=== PATIENT | male | born 1965 | race African-American/Black ===

== ENCOUNTER 2024-05-24 16:29 | Inpatient (IN) | payer OTHER, SELFPAY ==
[2024-05-24] VITALS (48 sets, daily range): BP systolic 54–147; BP diastolic 32–88; BMI 43.1; BMI 42.1
[2024-05-24] MEDS: NARCAN 1 MG IV (13:29)
[2024-05-24 13:30] LABS: Glucose - Point of Care 174 mg/dl (70-99)
[2024-05-24] MEDS: DIPRIVAN 100 IV ×3 (13:41→23:23)
[2024-05-24] MEDS: LEVOPHED 250 IV ×2 (13:51→20:38)
[2024-05-24] MEDS: NSS 1000 IV ×5 (13:51→23:23)
[2024-05-24 13:56] LABS: AST (SGOT) 48 U/L (17-59); Acetaminophen < 10 ug/ml (10-30); Albumin 4.2 g/dl (3.5-5.0); Alkaline Phosphatase 95 U/L (38-126); Blood Urea Nitrogen 43 mg/dl (9-20); Calcium 8.6 mg/dl (8.4-10.2); Carbon Dioxide 32 mmol/L (22-30); Chloride 97 mmol/L (98-107); Estimated Creatinine Clearance 46 ml/min; Glucose 198 mg/dl (70-99); Potassium 5.2 mmol/L (3.5-5.1); Salicylate < 1.0 mg/dl (2.0-20.0); Sodium 144 mmol/L (135-145); Total Bilirubin 0.6 mg/dl (0.2-1.3); Total Protein 6.9 g/dl (6.3-8.2); eGFR 33.87
[2024-05-24 13:59] LABS: Alcohol None Detected
[2024-05-24 14:01] LABS: B.E. 0.4 mmol/L; HCO3 34.3 mmol/L (21-28); PO2 220 mmHg (83-108)
[2024-05-24 14:01] LABS: Hematocrit 53.9 % (39.0-52.0); Hemoglobin 15.6 g/dL (13.0-18.0); Mean Corp Hgb Conc. 28.9 g/dL (33.0-37.0); Mean Corpuscular Hgb 26.8 pg (27.0-31.0); Mean Corpuscular Volume 92.6 fL (80.0-94.0); Mean Platelet Volume 10.7 fL (7.4-10.4); Platelet Count 319 10^3/uL (130-400); Red Blood Cell Count 5.82 10^6/uL (4.70-6.10); Red Cell Dist. Width 16.2 % (11.5-14.5); White Blood Cell Count 8.1 10^3/uL (4.8-10.8)
[2024-05-24 14:04] LABS: INR 1.09; PT 14.4 Sec (11.4-14.6)
[2024-05-24 14:05] LABS: APTT 21.8 Sec (23.4-35.0)
--- NOTE | 2024-05-24 14:05 | ED.GENMED ---
History of Present Illness
General
Chief Complaint: Change in Mental Status
Source: ambulance crew
Exam Limitations: clinical condition
Time Seen by Provider: 05/24/24 13:30
Nursing documentation reviewed up to this point in time: agreed with
History of Present Illness
History of Present Illness:
58-year-old male with a reported history of asthma and hypertension, hypothyroidism who presents to the emergency department via EMS intubated and minimally responsive. 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 When they checked on him this morning he was very lethargic, per EMS on their arrival he was minimally responsive and hypoxic to
the 50s. He was transported out of the truck and intubated. He was transported to the emergency room for assessment. No other history available on initial presentation.
UPDATE
I spoke to the patient's who arrived in the ER. She says that he has been sick since Thanks[place] with URI symptoms and bad cough. 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 She has been in communication with him over the past
24 hours he has been feeling unwell. Last night he indicated that he was going to sleep in the truck and she says that she spoke to him this morning and he was planning to come home. She then received a call from staff at [facility]
that he was lethargic and EMS had been called.
Review of Systems
Review of Systems
Unable to obtain full review of systems at this time due to: due to acuity
All Other Systems: Not applicable
Phy Exam
Physical Exam
Physical Exam:
General: Patient laying in bed intubated minimally responsive to painful stimuli
Head: Normocephalic, atraumatic
Eyes: Conjunctiva normal, pupils 3 mm and reactive to light bilaterally
Throat: Intubated
Neck: Trachea midline, no JVD noted
Lungs: Diminished at the lung bases, no focal wheezing appreciated; pulse ox 95% on FiO2 of 100% on ventilator
Heart: Regular rate and rhythm, no murmurs, gallops, or rubs
Abd: Soft, non distended, no palpable masses
Neuro: Minimally responsive�will occasionally bite down on ET tube but not responding consistently to painful stimulus
Skin: no rash or signs of trauma
Extremities: No edema in extremities, cool to the touch
Scores
Heart Failure Risk
Heart Failure Risk Score: Not Applicable
Heart Score for Chest Pain Patients
STEMI patient?: Not applicable
Withdrawal Assessment of Alcohol
Withdrawal Assessment Completed?: Not applicable
Course
Orders/Labs/Results
Orders:
Orders
05/24/24 13:26
Electrocardiogram (*1) Urgent
Reason for Study: Other
Other Reason for Exam: Possible Sepsis
Cardiac Monitoring- Treatment ONCE
IV Insert/Care/Rem.- Treatment PRN
Straight cath- Treatment ONCE
Naloxone [Narcan] 2 mg .ROUTE .STK-MED ONE
CR Chest Portable - 1 View Urgent
Comment:
Reason For Exam: intubation
Reason Study Needs to be Portable: Unable to Transport
O2 Therapy [RESP] Urgent
Titrate/Wean O2 to maintain O2 sat greater than (%): 93
Special Instructions: TO MAINTAIN CONTINUOUS O2 SATS > OR = 93%
Pulse Ox/cont/shift [RESP] Urgent
Quantity: 1
Special Instructions: CONTINUOUS
05/24/24 13:27
EKG- Treatment ONCE
05/24/24 13:29
Naloxone [Narcan] 1 mg IV NOW STA
Propofol 1,000,000 Mcg/100 ml [Diprivan] 1,000,000 mcg in 100 ml .ROUTE .STK-MED
05/24/24 13:31
Acetaminophen Urgent
Alcohol Urgent
Complete Blood Count/With Diff Urgent
Comprehensive Metabolic Panel Urgent
Lactic Acid Q4H
Comment: ON ICE, CANCEL 2ND ORDER IF FIRST LACTIC ACID LEVEL <2
Manual Differential Urgent
NT-proBNP Urgent
PTT Urgent
Prothrombin Time Urgent
Salicylate Urgent
Troponin I Stat
05/24/24 13:33
CT Head W/o Iv Contrast Urgent
Comment:
Reason For Exam: unresponsive
CT Pe/abd/pel W Urgent
Reason For Exam: hypoxic, truck cleaner, unresponsive
05/24/24 13:34
0.9% Sodium Chloride 1000 ml [Nss] 1,000 ml IV BOLUS
NORepinephrine 4 MG/250 ML [Levophed] 4 mg in 250 ml IV NOW
Initial dose in mcg/min, then titrate:: 2
Titrate to keep:: MAP > 65 mmHg
Titrate by mcg/min:: 1-2 mcg/min
Frequency of titrations (minutes):: 5
Maximum dose in ICU in mcg/min:: 30
Maximum dose in IMU in mcg/min:: 8
Maximum dose in IVU in mcg/min:: 4
Begin to taper infusion when:: Remained at goal for 4hrs
Taper by mcg/min:: 1-2 mcg/min
Frequency of taper (minutes) if patient maintains goal:: 30
Taper to off?: Yes
If infusion off & no longer maintaining goal:: Contact Provider
05/24/24 13:44
ABG [Arterial Blood Gas] Stat
%Oxygen/Room Air: ac 22 450 +5 100
Carboxyhemoglobin Urgent
05/24/24 14:00
COVID-19 Antigen Urgent
Source: Nasal Swab
Influenza A+B Rapid Molecular Urgent
CHARO Source: Nasal Swab
Specimen Description:
05/24/24 14:04
Piperacillin/Tazo 3.375 Gram [Zosyn] 3.375 gram in 50 ml IV NOW
05/24/24 14:10
PHENYLephrine 50 MG/250 ML NSS [[place]-Synephrine] 50 mg in 250 ml IV NOW
Initial dose in mcg/min, then titrate:: 20
Titrate to keep:: MAP > 65 mmHg
Titrate by mcg/min:: 20 mcg/min
Frequency of titrations (minutes):: 5
Maximum dose in ICU in mcg/min:: 200
Maximum dose in IMU in mcg/min:: 80
Begin to taper infusion when:: Remained at goal for 4hrs
Taper by mcg/min:: 20 mcg/min
Frequency of taper (minutes) if patient maintains goal:: 30
Taper to off?: Yes
If infusion off & no longer maintaining goal:: Contact Provider
05/24/24 14:38
0.9% Sodium Chloride 1000 ml [Nss] 1,000 ml IV BOLUS
05/24/24 14:42
TSH Reflex To Free T4 Urgent
Urinalysis Reflex To Culture Urgent
Date Specimen was Collected: 05/24/24
Time Specimen was Collected: 13:27
Urine Microscopic Reflex Cult Urgent
Blood Culture Q30M
CHARO Source: Blood/Venous
Specimen Description:
Blood Culture Q30M
CHARO Source: Blood/Venous
Specimen Description:
Urine Culture Urgent
CHARO Source: U
Specimen Description:
Date Specimen was Collected: 05/24/24
Time Specimen was Collected: 13:27
Vasopressin 20 Units/100 ml [Pitressin] 20 units in 100 ml IV NOW
Currently infusing. Continue current dose and titrate:: Yes
Titrate to keep:: MAP > 65 mmHg
Titrate by units/min:: 0.005 units/min
Frequency of titrations (minutes):: 10
Maximum dose in units/min:: 0.1
Begin to taper infusion when:: Remained at goal for 8hrs
Taper by units/min:: 0.005 units/min
Frequency of taper (minutes) if patient maintains goal:: 60
Taper to off?: Yes
If infusion off and no longer mantaining goal:: Contact Provider
05/24/24 14:57
Vancomycin [Vancocin] 2,000 mg 0.9% Sodium Chloride 500 ml [Nss] 500 ml IV NOW
05/24/24 15:29
Ipratropium/Albuterol Sulfate [Duoneb] 3 ml INH R NOW STA
MethylPREDNISolone PF [Solu-Medrol Pf] 125 mg IV NOW STA
05/24/24 17:30
Lactic Acid Q4H
Comment: ON ICE, CANCEL 2ND ORDER IF FIRST LACTIC ACID LEVEL <2
Abnormal Lab Results
05/24/24 05/24/24 05/24/24
13:29 13:31 13:44
Hct 53.9 H %
(39.0-52.0)
MCH 26.8 L pg
(27.0-31.0)
MCHC 28.9 L g/dL
(33.0-37.0)
RDW 16.2 H %
(11.5-14.5)
MPV 10.7 H fL
(7.4-10.4)
Abs Immat Gran (auto) 0.4 H 10^3/uL
(0-0.05)
Absolute Monos (auto) 0.7 H 10^3/uL
(0.1-0.6)
Immature Gran % 5.4 H %
(0-0.5)
Lymphocytes % 19.6 L %
(20.5-51.1)
Segmented Neutrophils 40 L %
(42-75)
Band Neutrophils 17 H %
(0-3)
Monocytes (Manual) 12 H %
(2-9)
APTT 21.8 L Sec
(23.4-35.0)
pH 7.11 L*
(7.35-7.45)
pCO2 108 H* mmHg
(35-48)
pO2 220 H mmHg
(83-108)
HCO3 34.3 H mmol/L
(21-28)
ABG O2 Sat (Measured) 100.0 H %
(94-98)
Potassium 5.2 H mmol/L
(3.5-5.1)
Chloride 97 L mmol/L
(98-107)
Carbon Dioxide 32 H mmol/L
(22-30)
BUN 43 H mg/dl
(9-20)
Creatinine 2.2 H mg/dL
(0.7-1.3)
Glucose 198 H mg/dl
(70-99)
Lactic Acid 4.7 H* mmol/L
(0.7-2.0)
ALT 56 H U/L
(0-50)
Troponin I 0.058 H* ng/ml
Ur Occult Blood Reflex
Urine Bilirubin
Urine Urobilinogen
Urine RBC
Urine Bacteria (Reflex)
Urine Albumin (Reflex)
Salicylates < 1.0 L mg/dl
(2.0-20.0)
Acetaminophen < 10 L ug/ml
(10-30)
POC Glucose 174 H mg/dl
(70-99)
05/24/24
14:42
Hct
MCH
MCHC
RDW
MPV
Abs Immat Gran (auto)
Absolute Monos (auto)
Immature Gran %
Lymphocytes %
Segmented Neutrophils
Band Neutrophils
Monocytes (Manual)
APTT
pH
pCO2
pO2
HCO3
ABG O2 Sat (Measured)
Potassium
Chloride
Carbon Dioxide
BUN
Creatinine
Glucose
Lactic Acid
ALT
Troponin I
Ur Occult Blood Reflex 2+ A
(Negative)
Urine Bilirubin 1+ A
(Negative)
Urine Urobilinogen 2+ A
(Neg - 1+)
Urine RBC 3-6 A /HPF
(0-2)
Urine Bacteria (Reflex) Many A
(Negative)
Urine Albumin (Reflex) 3+ A
(Neg - Trace)
Salicylates
Acetaminophen
POC Glucose
05/24/24 13:31
05/24/24 13:31
Vital Signs
Initial and Last Documented VS:
Initial Vital Signs
BP
69/47
05/24/24 13:31
Last Documented Vital Signs
Temp Pulse Resp BP Pulse Ox
2.2 C L 75 15 107/68 95
05/24/24 14:55 05/24/24 15:17 05/24/24 15:17 05/24/24 15:17 05/24/24 15:17
Procedures
Central Line
Left Femoral:
Indication for procedure:: shock
Procedure completed by: Pito Wolf MD
Consent form signed: No
If no, reason: Emergency procedure
Anesthesia: 1% Lidocaine
Central line lumen: triple
Number of attempts: 2
Central line complications: none
Sterile dressing applied?: Yes
MDM/Problems Addressed
Differential Diagnosis Includes:
Patient presents in respiratory failure and shock: Wide differential diagnosis includes infectious etiology such as pneumonia or UTI, intra-abdominal infection; toxicologic issue such as alcohol poisoning, drug overdose; central nervous issue
including stroke, brain bleed, seizure disorder; obstructive shock such as pneumothorax or PE; hemorrhage/massive GI bleed
MDM/Problems Addressed:
58-year-old male presents in respiratory failure intubated by EMS and he is in undifferentiated shock. He was intubated in the field, stat chest x-ray reviewed by me shows ET tube in place, reticular markings bilaterally concerning for pulmonary
edema versus interstitial pneumonia. Accu-Chek on arrival was normal. He was given Narcan and did not respond. He arrived with IV in place we establish second IV. Labs sent off including a CBC and a CMP, lactate, blood cultures, thyroid studies,
troponin, proBNP, Tylenol/likely/alcohol levels. Will send urinalysis and UDS. Will send for a CT of the head. Will check CTA chest and a CT abdomen pelvis as well for undifferentiated shock and respiratory failure. He did apparently have a cold
the past few days will swab for COVID and flu. Cover with broad-spectrum antibiotics with abnormal chest x-ray. Will place emergent central line for shock. IV fluid resuscitation in progress will treat with vasopressors as well. Needs very close
monitoring, ICU admission pending initial assessment.
Labs reviewed: CBC unremarkable, CMP shows renal insufficiency with a creatinine of 2.2. No baseline available for comparison. Troponin and BNP are slightly elevated. Urinalysis many bacteria but no pyuria�was already covered with broad-spectrum
antibiotics for possible pneumonia. CT head was negative. CT chest/abdomen/pelvis shows no PE, bilateral pneumonia but no other acute pathology. At this point working diagnosis is septic shock secondary to pneumonia and acute hypoxic respiratory
failure secondary to pneumonia. He has been given broad-spectrum antibiotics, fluid resuscitation and is now on vasopressors. Will admit to the ICU for further care. Case discussed with hospitalist for admission.
*Radiology
Radiology exam reviewed: preliminary read by ED provider and radiology read reviewed
*Pulse Oximetry
Patient hypoxic: yes
*EKG
Interpreted by ED Provider?: Yes
Heart Rate: 78
Rate: normal
Rhythm: sinus
[place]: normal axis
Interval: normal interval
QRS Pattern: normal QRS
Ischemia: non-specific ST changes
*Critical Care Note
Total Time (30-74mins, 75-104mins- exclusive of procedures): 67
comment:
Critical care statement: A total of 67 minutes of critical care time was provided for this patient. This includes management of unstable vital signs, evaluation of the patient at bedside, frequent reassessment, discussion with
consultants/hospitalist, and review of pertinent medical records. This time was separate from time utilized to perform any aforementioned documented procedures
Data Reviewed
Source: ambulance crew
Patient Management
Discussion with other providers: Hospitalist (Discussed with hospitalist)
Escalation/DeEscalation of care consider admission/obs:
Admission indicated
ED Attending Note
-
Portions of this chart may have been created with voice recognition software.� Occasional wrong word or��sound alike� substitutions may have occurred due to the inherent limitations of voice recognition software.
Discharge Plan
Departure
Patient Disposition: Admit
Date of Disposition: 05/24/24
Time of Disposition: 15:30
Admit to doctor: Danisha
Presentation/result/management discussed w/ accepting MD/DO: Hospitalist
Discharge Problem:
Acute hypoxemic respiratory failure, Septic shock, Pneumonia
Prescriptions:
No Action
atorvastatin [Lipitor] 20 mg Tablet
20 mg PO HS
lisinopril 20 mg Tablet
20 mg PO DAILY
levothyroxine [Synthroid] 200 mcg Tablet
200 mcg PO DAILY
Trelegy Ellipta 100-62.5-25 mcg Blister With Device
1 inh INHALATION R DAILY
Referrals:
UNKNOWN - PT NOT,INTERVIEWE [Unknown Provider] -
Interventions
Interventions:
*Risk Screen - Suicide Last Done: 05/24/24 13:35
*General Assessment Last Done: 05/24/24 13:35
*Neglect/Abuse Screening Last Done: 05/24/24 13:35
*ED COVID-19 Vaccine History Last Done: 05/24/24 13:35
ED- Neurological Assessment Last Done: 05/24/24 13:35
ED Swallowing Screen Last Done: 05/24/24 13:49
Discharge Date and Time
Print Language: LAO
[2024-05-24 14:08] LABS: PCO2 108 mmHg (35-48); pH 7.11 (7.35-7.45)
[2024-05-24 14:10] LABS: Carboxyhemoglobin 3.1 %
[2024-05-24 14:14] LABS: NT-proBNP 6650 pg/ml; Troponin I 0.058 ng/ml
[2024-05-24 14:22] LABS: Lactic Acid 4.7 mmol/L (0.7-2.0)
[2024-05-24 14:30] LABS: ALT (SGPT) 56 U/L (0-50)
[2024-05-24 14:34] LABS: COVID-19 Antigen Negative (Negative)
--- NOTE | 2024-05-24 14:56 | PTCARENOTE ---
patient propofol started at 10 mcg/kg @ 1341 per md riddle verbal order
-titrated to 14mcg/kg @1443
-propofol titrated to 20mcg/kg @1452
--- NOTE | 2024-05-24 14:59 | PTCARENOTE ---
OG tube placed by ED at 1400. 16F. Awaiting ct chest confirmation for placement.
LEft going central line placed by MD riddle @ 1410.
[2024-05-24 15:03] LABS: Urine Albumin 3+ (Neg - Trace); Urine Bilirubin 1+ (Negative); Urine Character Very Cloudy (Clear); Urine Color Yellow; Urine Glucose Negative (Negative); Urine Ketone Negative (Negative); Urine Leukocyte Negative (Negative); Urine Nitrite Negative (Negative); Urine Occult Blood 2+ (Negative); Urine Specific Gravity 1.025 (<1.030); Urine Urobilinogen 2+ (Neg - 1+)
[2024-05-24] MEDS: ZOSYN 50 IV ×2 (15:13→20:56)
[2024-05-24 15:17] LABS: % Basophils 0.5 % (0-2); % Immature Granulocytes 5.4 % (0-0.5); % Lymphocytes 19.6 % (20.5-51.1); % Monocytes 8.3 % (1.7-9.3); % Neutrophils 66.2 % (42.2-75.2); Absolute Immature Granulocytes 0.4 10^3/uL (0-0.05); Absolute Lymphocytes 1.6 10^3/uL (1.2-3.4); Absolute Monocytes 0.7 10^3/uL (0.1-0.6); Absolute Neutrophils 5.4 10^3/uL (1.4-6.5); Nucleated Red Blood Cells % 6.7 % (-)
[2024-05-24 15:18] LABS: Absolute Neutrophils -Man Diff 4.6 10^3/uL (1.4-6.5); Band Neutrophils 17 % (0-3); Lymphocytes 26 % (20-51); Metamyelocytes 2 % (-); Monocytes 12 % (2-9); Myelocytes 2 % (-); Segmented Neutrophils 40 % (42-75)
[2024-05-24 15:19] LABS: Atypical Lymphocytes 1 %
[2024-05-24 15:20] LABS: Normal RBC Morphology Yes; Platelets Checked Yes; Total Cells Counted 100
[2024-05-24 15:25] LABS: Urine Squamous Cell 0-2 /LPF (Few)
[2024-05-24 15:26] LABS: Urine Bacteria Many (Negative); Urine Sperm Seen; Urine White Cell 0-2 /HPF (0-5)
[2024-05-24] MEDS: DUONEB 3 ML INH ×2 (15:35→19:58)
[2024-05-24] MEDS: VANCOCIN 540 MG IV (16:01)
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
[2024-05-24] MEDS: SOLU-MEDROL PF 125 MG IV (16:23)
--- NOTE | 2024-05-24 16:30 | W.PN.UPDATE ---
Update Note
Progress Note Update
I have discussed the case with the family medicine transitional year resident, Jose Payne, and agree with his HPI, physical exam, impression and plan with the following notations/corrections/additions:
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
VS in the ER showed he was afebrile to 97.7F, AL 79, BP 69/47, RR 25, SpO2 98% via ventilator.� Initial labs pertinent for normal WBC at 8.1, Hb 15.6; initial blood gas showed acute hypercapnia with pH 7.11 and pCO2 108.� K level 5.2, Cr 2.2, BUN
43, glucose 198, lactate 4.7, ALT 56, troponin 0.058, proBNP 6650, TSH 60.4 and free T4 0.49. COVID-19 antigen negative.� CXR showed diffusely increased interstitial markings.� CTA Chest/CT A/P with IV contrast showed no acute PE, with a parenchymal
opacity in the lower lobes (L>R), with emphysema in the upper lobes, with diffusedly increased interstitial markings.
PMHx: Asthma, HTN, hypothyroidism (per )
PSHx: Unobtainable
SHx: Unobtainable
FHx: Unobtainable
Pertinent physical exam:
Intubated/sedated
PERRL/EOMI; pupils 2mm b/l and sluggish
ETT in place
+S1/S2; no murmurs/rubs/clicks
Expiratory wheezing heard bilaterally + mechanical breath sounds ; no rales or rhonchi; equal breath sounds
Soft/nontender/normal active bowel sounds
No lower extremity edema
Sedated
I personally reviewed the patient's vitals, labs, imaging, micro, cardiac studies and current/former documentation and took this into account while formulating plan below.
Impression:
#Acute respiratory failure with hypoxia and hypercapnia now on mechanical ventilation
#CAP involving bilateral lower lobes
#Septic shock due to above
#Hypothermia likely due to septic shock from LLL pneumonia
#MAGGI (unknown Cr baseline) with elevated potassium
#Lactic acidosis
#Elevated troponin
#Acute decompensated heart failure (mild)
#Hypothyroidism with severely elevated TSH of 60.4 with free T4 0.49
#Hyperglycemia
#Transaminitis
#Centrilobular emphysema with concern for COPD
Plan:
- Continue with mechanical ventilation with daily SAT/SBT if clinically appropriate
��������������� - Titrate FiO2 + PEEP to maintain SpO2 >90-94%
��������������� - Maintain plateau pressure < 30
��������������� - DuoNebs QID given he is wheezing on exam
��������������� - Decadron 6mg IV q12hr --< wean as he clinically improves
��������������� - Maintain euglycemia while on high-dose steroids with goal BG 140�180; use ISS
��������������� - Lightly sedated with goal RASS -1 to -2 until daily SAT
- Broad spectrum Abx
��������������� - Follow up blood Cx
��������������� - Check sputum Cx and legionella/Strep PNA urine antigens
��������������� - Maintain normothermia with Sintia hugger
- Continue vasopressors with goal MAP>65
��������������� - Unable to diurese given shock state with concern for sepsis
��������������� - Check 2D-echo
��������������� - Consider cardiology consult
- Start IV levothyroxine with 150mcg daily; trend TFTs with next blood draw in 48-72 hrs to assess for improvement in TSH
- trend troponin until downtrends
- Trend lactate until <2mmol/L
- Trend LFTs
- Trend sCr and BUN; renally dose all meds/Abx; monitor I/O and UOP
- Stress ulcer ppx with pepcid
- DVT ppx: HSQ
- Remainder as per resident�s note
Critical care statement: A total of 40 minutes of critical care time was provided for this patient today. This includes management of unstable vital signs, evaluation of the patient at bedside, reviewing the patient's pertinent medical records
including radiographs, microbiology, laboratory evaluations, and� discussion with primary team, consultants, pharmacy, nutrition, physical therapy, case management, charge nurse, critical care nursing, and respiratory therapy.
Imaging:
CTA Chest/CT A/P with IV contast 05/24/2024:
Examination is negative for pulmonary embolism.
Parenchymal airspace opacity within both lower lobes, left greater than right, with findings suspicious for pneumonia. Atelectasis could have a similar appearance.
Changes of emphysema within both lungs, mainly within the upper lungs.
Mild diffuse increased interstitial markings, which could represent interstitial pneumonitis and/or interstitial edema.
Endotracheal tube with tip 3.2 cm above the swati.
Nasogastric tube with tip in the mid to distal esophagus. This tube should be repositioned.
No evidence for bowel obstruction. No evidence for free intraperitoneal air.
CT Head 05/24/2024:� No evidence of acute intracranial abnormality.
[2024-05-24 16:52] LABS: Free T4 0.49 ng/dl (0.78-2.19)
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
[2024-05-24 17:34] LABS: Triglycerides 137 mg/dl (10-149)
[2024-05-24 18:18] LABS: B.E. 0.9 mmol/L; HCO3 30.3 mmol/L (21-28); O2 Saturation % 93.8 % (94-98); PCO2 69 mmHg (35-48); PO2 84 mmHg (83-108); pH 7.25 (7.35-7.45)
[2024-05-24 18:24] LABS: O2 Therapy %Oxygen/Room Air 80
[2024-05-24 18:48] LABS: Triglycerides 201 mg/dl (10-149)
[2024-05-24 18:49] LABS: Lactic Acid 1.1 mmol/L (0.7-2.0)
[2024-05-24 19:03] LABS: Troponin I 0.139 ng/ml
--- NOTE | 2024-05-24 19:06 | PHA.VAN.IN ---
Assessment
- Assessment
Renal Function: Unknown baseline
Concomitant Antimicrobials: piperacillin/tazobactam
Plan
- Plan
Initial / Loading Dose: vanc 2000mg administered @ 1601
Maintenance Regimen: dosing by level
Monitoring: random level 05/25 06
Pharmacokinetics Vancomycin I
- -
Patient Age: 58
Patient Sex: Male
Vancomycin Day #: 1
Indication: Pulmonary/Respiratory
Requesting Provider: Dr. Raman
Pertinent Antimicrobial Allergies:
no pertinent antimicrobial allergies
Height / Weight:
Height 5 ft 7 in
Actual Weight 121.8 kg
Pertinent Past Medical History: BMI 42
- Vital Signs / Lab Results
Temp Pulse Resp BP Pulse Ox
98.6 F 85 22 101/86 96
05/24/24 17:54 05/24/24 17:45 05/24/24 17:45 05/24/24 17:45 05/24/24 17:45
Lab Results - Hematology
05/24/24
13:31
WBC 8.1
Band Neutrophils 17 H
Lab Results - Chemistry
05/24/24
13:31
BUN 43 H
Creatinine 2.2 H
Estimated Creat Clear 46
Albumin 4.2
05/24/24 05/24/24
13:31 18:29
Lactic Acid 4.7 H* 1.1
Lab Results - Urine
05/24/24
14:42
Urine Nitrite (Reflex) Negative
Leukocyte Esterase Rfl Negative
Urine WBC (Reflex) 0-2
Ur Squamous Epith Cells 0-2
Urine Bacteria (Reflex) Many A
Microbiology Results
05/24/24 14:00 Influenza Types A & B (BITA) - Final
Nasal Swab Negative for Influenza A & B, NAAT
Negative results must be combined with clinical observations
and patient history.
Nucleic Acid Amplification test (NAAT)performed on the
[employer] platform.
--- NOTE | 2024-05-24 19:08 | PTCARENOTE ---
1724-Received pt from ED via stretcher.Eyes do not open to stimuli,pt seems to attempt to localize with bl hands going up towards ETT.Pt also resists oral care.+ CASTILLO 2/5 CASTILLO noted.SR noted.Left femoral TLC intact with IVF,Propofol and Levophed
gtts.BP 121/75.# 7.5 ETT to vent.scattered rhonchi noted.Suctioned for moderate amount thick knutson yellow secretions.Large amount oral secretion noted.POX 97% AC 24 450 60% +5.Unable to flush air bolus.Toledo inserted to right nares 75 cm.+ air bolus
auscultated.Abdominal x ray ordered as per MD.Cortez draining yellow urine.Pt's called. Alida Bridget [phone].Plan of care discussed.
--- NOTE | 2024-05-24 19:59 | PTCARENOTE ---
On assessment pt intubated and sedated, unable to follow commands at this time, SR on the monitor, levo gtt, prop gtt, and fluids infusing per order, 7.5 ETT 24 at the lip, R nare NGT clamped, santo in place, respiratory at bedside to assess pt at
this time.
[2024-05-24] MEDS: SUBLIMAZE 50 MCG IV ×2 (20:56→22:34)
[2024-05-24] MEDS: DECADRON 4 MG IV (21:18)
[2024-05-24] MEDS: LEVOTHROID 150 MCG IV (21:29)
[2024-05-24 22:25] LABS: Troponin I 0.215 ng/ml
[2024-05-24] MEDS: HEPARIN 5000 UNITS SC (23:23)
[2024-05-24 23:49] LABS: Glucose - Point of Care 186 mg/dl (70-99)
[2024-05-25] VITALS (57 sets, daily range): BP systolic 112–160; BP diastolic 62–91; BMI 42.4
[2024-05-25] MEDS: NOVOLOG FLEXPEN-MODERATE RESISTANCE 1 UNITS SC ×3 (00:05→23:29)
--- NOTE | 2024-05-25 00:34 | PTCARENOTE ---
PRN fen pushes given for agitation, increased oral secretions, titrating down on levo gtt, approx. 300ml of dark drainage from NGT once attached to Low int. suction, JIG BUILDER made aware, pulse ox 95%
[2024-05-25] MEDS: SUBLIMAZE 50 MCG IV ×7 (00:58→22:28)
[2024-05-25] MEDS: LEVOPHED 250 IV (01:04)
[2024-05-25] MEDS: ZOSYN 50 IV ×4 (01:58→20:04)
--- NOTE | 2024-05-25 03:27 | PTCARENOTE ---
continuing to titrate down on levo, remains on prop gtt, fen pushes PRN, see MAR
[2024-05-25] MEDS: DIPRIVAN 100 IV ×5 (03:54→21:47)
[2024-05-25] MEDS: SUBLIMAZE 100 IV ×2 (04:26→17:23)
[2024-05-25 05:11] LABS: B.E. 7.9 mmol/L; HCO3 34.7 mmol/L (21-28); O2 Saturation % 96.8 % (94-98); PCO2 56 mmHg (35-48); PO2 76 mmHg (83-108)
[2024-05-25 05:16] LABS: O2 Therapy VENT
[2024-05-25 05:48] LABS: Glucose - Point of Care 164 mg/dl (70-99)
[2024-05-25 06:05] LABS: % Basophils 0.6 % (0-2); % Eosinophils 2.8 % (0-6); % Immature Granulocytes 3.1 % (0-0.5); % Lymphocytes 19.1 % (20.5-51.1); % Monocytes 8.4 % (1.7-9.3); Absolute Basophils 0.1 10^3/uL (0-0.2); Absolute Eosinophils 0.3 10^3/uL (0-0.7); Absolute Immature Granulocytes 0.3 10^3/uL (0-0.05); Absolute Lymphocytes 1.8 10^3/uL (1.2-3.4); Absolute Monocytes 0.8 10^3/uL (0.1-0.6); Absolute Neutrophils 6.2 10^3/uL (1.4-6.5); Hematocrit 44.2 % (39.0-52.0); Hemoglobin 13.7 g/dL (13.0-18.0); Mean Corpuscular Hgb 27.2 pg (27.0-31.0); Mean Corpuscular Volume 87.9 fL (80.0-94.0); Mean Platelet Volume 10.9 fL (7.4-10.4); Nucleated Red Blood Cells % 5.4 % (-); Platelet Count 275 10^3/uL (130-400); Red Blood Cell Count 5.03 10^6/uL (4.70-6.10); Red Cell Dist. Width 15.9 % (11.5-14.5); White Blood Cell Count 9.3 10^3/uL (4.8-10.8)
[2024-05-25 06:22] LABS: Vancomycin Random 7.8 ug/ml
[2024-05-25 06:32] LABS: Troponin I 0.394 ng/ml
[2024-05-25 06:34] LABS: ALT (SGPT) 89 U/L (0-50); AST (SGOT) 66 U/L (17-59); Albumin 3.2 g/dl (3.5-5.0); Alkaline Phosphatase 106 U/L (38-126); Blood Urea Nitrogen 35 mg/dl (9-20); Carbon Dioxide 34 mmol/L (22-30); Chloride 103 mmol/L (98-107); Estimated Creatinine Clearance 92 ml/min; Glucose 165 mg/dl (70-99); Potassium 4.5 mmol/L (3.5-5.1); Sodium 144 mmol/L (135-145); Total Bilirubin 0.4 mg/dl (0.2-1.3); Total Protein 5.7 g/dl (6.3-8.2); eGFR > 60.00
[2024-05-25] MEDS: DUONEB 3 ML INH ×4 (07:29→19:53)
--- NOTE | 2024-05-25 08:02 | PHA.VAN.FU ---
Vancomycin Assessment / Plan
- Assessment
Renal Function: SCR Decreasing
WBC's are: WNL
Concomitant Antimicrobials: piperacillin/tazobactam
- Assessment - Therapeutic Drug Monitoring
Random Level: 7.8 - drawn ~13.5H after 2g loading dose
- Dosing Plan
Adjust Regimen to: Vanc 1250mg Q12H - first dose now then 1800
- Monitoring Plan
Trough Level: pre-steady state 05/26 05:30 to ensure clearing appropriately
Monitoring Comments: follow renal function with resolving MAGGI
- Follow Up
Pharmacy will continue to follow.
Vancomycin Follow UP
- -
Patient Age: 58
Patient Sex: Male
Vancomycin Day #: 2
Indication: Pulmonary/Respiratory
Requesting Provider: Dr. Raman
Pertinent Antimicrobial Allergies:
no pertinent antimicrobial allergies
Height / Weight:
Height 5 ft 7 in
Actual Weight 122.6 kg
Pertinent Past Medical History: BMI 42
- Vital Signs / Lab Results
Temp Pulse Resp BP Pulse Ox
98.9 F 60 22 122/69 96
05/25/24 07:46 05/25/24 07:29 05/25/24 07:29 05/25/24 06:30 05/25/24 07:29
Lab Results - Hematology
05/24/24 05/25/24
13:31 05:47
WBC 8.1 9.3
Band Neutrophils 17 H
Lab Results - Chemistry
05/24/24 05/25/24
13:31 05:47
BUN 43 H 35 H
Creatinine 2.2 H 1.1
Estimated Creat Clear 46 92
Albumin 4.2 3.2 L
05/24/24 05/24/24 05/24/24
13:31 18:26 18:29
Lactic Acid 4.7 H* Cancelled 1.1
Lab Results - Urine
05/24/24
14:42
Urine Nitrite (Reflex) Negative
Leukocyte Esterase Rfl Negative
Ur Squamous Epith Cells 0-2
Microbiology Results
05/24/24 14:42 Blood Culture - Preliminary
Blood/Venous Positive culture in progress
Gram Stain - Preliminary
05/24/24 14:42 Legionella Urinary Antigen - Final
Urine Negative for Legionella pneumophila Serogroup 1 antigen.
A negative result does not rule out the possiblity of
Legionella infection due to other serogroups or species of
Legionella. Clinical correlation is recommended.
Streptococcus pneumoniae Antigen (M - Final
Negative for Streptococcus pneumoniae antigen.
A negative result does not exclude infection with
Streptococcus pneumoniae. Clinical correlation is
recommended.
05/24/24 14:00 Influenza Types A & B (BITA) - Final
Nasal Swab Negative for Influenza A & B, NAAT
Negative results must be combined with clinical observations
and patient history.
Nucleic Acid Amplification test (NAAT)performed on the
[employer] platform.
Therapeutic Drug Monitoring
Random Vancomycin 7.8 ug/ml 05/25/24 05:47
[2024-05-25] MEDS: PEPCID 20 MG TUBE (08:14)
[2024-05-25] MEDS: HEPARIN 5000 UNITS SC (08:14)
[2024-05-25] MEDS: MIRALAX 17 GRAMS TUBE (08:14)
--- NOTE | 2024-05-25 08:27 | W.PN.INTV ---
Today's Communication / Plan
Recommendations
Veteran Appeals Reviewer ventilation
SAT/SBT daily if clinically appropriate
Monitor ETT secretions and keep NGT to LIWS
Once NGT output slows, will clamp NGT and then start TF unless extubated by then
Goal RASS 0 to -2
Systemic steroids with wean as he clinically improves
Antibiotics
Follow-up cultures
Nebulized bronchodilators
Aspiration precautions
Levothyroxine; trend TFTs
Critically ill, continue ICU level of care
Assessment
-
58-year-old male with a past medical history of tobacco use disorder, hypertension, hypothyroidism and reported history of asthma who presents with altered mental status. Found to be hypoxic and intubated in the field. Brought to the ER where he
was found to have a pneumonia with upper lobe predominant emphysema. Transferred to the ICU on vasopressors for further care with product scientist services consulted for additional management/recommendations.
Impression:
#Acute respiratory failure with hypoxia and hypercapnia now on mechanical ventilation
#CAP involving bilateral lower lobes
#Septic shock due to above
#Hypothermia likely due to septic shock from LLL pneumonia
#Centrilobular emphysema with concern for COPD with acute exacerbation
#MAGGI (unknown Cr baseline) with elevated potassium - K level now normalized and Cr improving
#Lactic acidosis - resolved
#Elevated troponin - peaked at 0.394 on 05/25/2024
#Acute decompensated heart failure (mild)
#Right ventricular systolic dysfunction (seen on TTE from 05/25/2024)
#Hypothyroidism with severely elevated TSH of 60.4 with free T4 0.49
#Hyperglycemia - improved
#Transaminitis
Plan:
- Continue with mechanical ventilation with daily SAT/SBT if clinically appropriate
��������������� - Titrate FiO2 + PEEP to maintain SpO2 >90-94%
- Given that his PEEP is at 8, would keep FiO2 at 60% and once PEEP is at 5, then start titrating down FiO2
��������������� - Maintain plateau pressure < 30
��������������� - DuoNebs QID given he was wheezing on exam on admission and we are treating for an AECOPD
��������������� - Decadron 6mg IV q12hr --> wean as he clinically improves
��������������� - Maintain euglycemia while on high-dose steroids with goal BG 140�180; use ISS
��������������� - Lightly sedated with goal RASS -1 to -2 until daily SAT
- Broad spectrum Abx
��������������� - Follow up blood Cx - BCx from 05/24/2024 is growing coagulase-negative staph, however other BCx is growing GPC in clusters - follow up species + sensitivities
��������������� - Follow up sputum Cx; legionella/Strep PNA urine antigens both negative
- Continue empiric treatment with antibiotics with vancomycin/Zosyn
��������������� - Maintain normothermia with Sintia hugger prn
- Continue vasopressors with goal MAP>65
��������������� - Unable to diurese given shock state with concern for sepsis
��������������� - 2D-echo done today shows LVEF preserved at 60-85% with moderate concentric LVH, and mildly enlarged RV with mildly reduced RV systolic function
��������������� - Consider cardiology consult
- Started IV levothyroxine with 150mcg daily on 05/24 --> change IV LT4 to PO and trend TFTs with next blood draw in 24-48 hrs to assess for improvement in TSH
- No longer need to trend troponin given it peaked at 0.394 this morning
- No longer need to trend lactate given it is now <2mmol/L
- Trend LFTs
- Trend sCr and BUN; renally dose all meds/Abx; monitor I/O and UOP
- Stress ulcer ppx with pepcid
- NGT currently to LIWS with high output --> once output slows, then clamp tube and we can start tube feeds at that time if not extubated yet
- DVT ppx: LMWH
Continue with ICU level care for this critically ill patient.
Critical care statement: A total of 41 minutes of critical care time was provided for this patient today. This includes management of unstable vital signs, evaluation of the patient at bedside, reviewing the patient's pertinent medical records
including radiographs, microbiology, laboratory evaluations, and discussion with primary team, consultants, pharmacy, nutrition, physical therapy, case management, charge nurse, critical care nursing, and respiratory therapy.
Data:
Transthoracic echocardiogram 05/25/2024:
Normal left ventricular systolic function. LV ejection fraction is 60-65%.
Moderate concentric left ventricular hypertrophy.
Mildly enlarged right ventricular size. Mildly reduced right ventricular
systolic function.
No significant valve disease.
CTA chest/CT abdomen/pelvis with contrast 05/24/2024:
Examination is negative for pulmonary embolism.
Parenchymal airspace opacity within both lower lobes, left greater than right, with findings suspicious for pneumonia. Atelectasis could have a similar appearance.
Changes of emphysema within both lungs, mainly within the upper lungs.
Mild diffuse increased interstitial markings, which could represent interstitial pneumonitis and/or interstitial edema.
Endotracheal tube with tip 3.2 cm above the swati.
Nasogastric tube with tip in the mid to distal esophagus. This tube should be repositioned.
No evidence for bowel obstruction. No evidence for free intraperitoneal air.
Subjective Dataa
Subjective Data
Date of Service:
Date of Service: May 25, 2024
Chief Complaint: Health Facilities Surveyor Follow Up
Subjective:
Patient seen and evaluated this morning. Remains intubated 60%/22/500/8, and has thick brown ETT secretions. On levophed at 2mcg/min. Sedated on fentanyl at 75mcg/hr and propofol at 40mcg/kg/min. Patient's , Alida, at bedside and all
questions were answered. Patient remains responsive to verbal and tactile stimuli but still too sedated to follow commands, as he becomes tachypneic when sedation is lowered.
Review of Systems
General: Unobtainable - Sedation (+ Intubated)
Objective Data
Data Reviewed
Vital Signs / I&O / Oxygen:
Vital Signs
Temp Pulse Resp BP Pulse Ox
98.8 F 59 22 117/66 92
05/25/24 09:00 05/25/24 09:15 05/25/24 09:15 05/25/24 09:15 05/25/24 09:15
Intake and Output
05/24/24 05/25/24 05/26/24
06:59 06:59 06:59
Intake Total 2350.6 / 2606.8 811.1 / 811.1
Output Total 2115 / 2155 110 / 110
Balance 235.6 / 451.8 701.1 / 701.1
SaO2 [A/C] 95
SaO2 92
Physical Exam
General: Respiratory Distress (negative), Chills (negative) and Sweats (negative)
HEENT: Normocephalic, Anicteric and Other (ETT in place)
Cardiovascular: S1-S2 and Peripheral Edema (negative)
Respiratory: Wheeze (negative), Crackles (Bilateral), Rhonchi (negative), Non-Labored Respirations and ET Tube (Mechanical breath sounds heard bilaterally)
GI: Soft, Distended (Abdominal obesity), Non Tender and Normal Bowel Sounds
Neurology: Tremors (negative) and Other (Sedated; pupils 3 mm bilaterally and sluggish)
Skin: Warm, Dry, Cyanosis (negative) and Jaundice (negative)
Labs/Micro/Reports
Lab Data
05/25/24 05:47
05/25/24 05:47
Laboratory Results
05/24/24 05/24/24 05/24/24
13:31 13:44 18:10
PT 14.4
INR 1.09
APTT 21.8 L
pH 7.11 L* 7.25 L
pCO2 108 H* 69 H
pO2 220 H 84
HCO3 34.3 H 30.3 H
O2 Delivery Level %oxygen/room air 80
05/25/24
05:04
PT
INR
APTT
pH 7.40
pCO2 56 H
pO2 76 L
HCO3 34.7 H
O2 Delivery Level Vent
Microbiology
05/24/24 14:42 Blood/Venous Blood Culture - Preliminary
Positive culture in progress
05/24/24 14:42 Blood/Venous Gram Stain - Preliminary
05/24/24 14:42 Blood/Venous Blood Culture - Preliminary
Positive culture in progress
05/24/24 14:42 Blood/Venous Gram Stain - Final
05/24/24 14:42 Urine Legionella Urinary Antigen - Final
Negative for Legionella pneumophila Serogroup 1 antigen.
A negative result does not rule out the possiblity of
Legionella infection due to other serogroups or species of
Legionella. Clinical correlation is recommended.
05/24/24 14:42 Urine Streptococcus pneumoniae Antigen (M - Final
Negative for Streptococcus pneumoniae antigen.
A negative result does not exclude infection with
Streptococcus pneumoniae. Clinical correlation is
recommended.
05/24/24 14:00 Nasal Swab Influenza Types A & B (BITA) - Final
Negative for Influenza A & B, NAAT
Negative results must be combined with clinical observations
and patient history.
Nucleic Acid Amplification test (NAAT)performed on the
[employer] platform.
[2024-05-25] MEDS: NSS 1000 IV (08:30)
[2024-05-25] MEDS: VANCOCIN 275 MG IV ×2 (08:30→17:22)
--- NOTE | 2024-05-25 09:34 | PTCARENOTE ---
Updated assessment, vital signs and drip trends ongoing. Follow up pulmonary status with respiratory cares team and Voice Intercept Technician team. Follow fio2, etco2 trends. Presently on 60% fio2 tv 500 a/c rate 22bpm and peep 8cm. Peak pressures 38. Antibiotics
and steroids continue as ordered. Follow up cultures and trends in labs ongoing. Update with patients via phone. Await for bedside update. Continue to explain all procedures and protocols. Critical care nursing at bedside for pulmonary toilet,
oral cares and suction as needed. Saturation presently 94% at rest. Noted tachypnea when flat or turning in bed.
[2024-05-25] MEDS: DECADRON 4 MG IV ×2 (09:43→20:04)
--- NOTE | 2024-05-25 10:11 | PTCARENOTE ---
Update with patients at bedside. Updated plan of cares, events of eveing and follow up concerns. Continue with teaching, supportive cares and emotional support. Will follow up patient goals during am rounds.
--- NOTE | 2024-05-25 10:33 | PTCARENOTE ---
3D Artist update patients at bedside. Update critical care team in am rounds. Follow up plan of cares, continue progressive wean from ventilator as tolerated. Continue vital signs and ongoing trends.
[2024-05-25 11:54] LABS: Glucose - Point of Care 144 mg/dl (70-99)
[2024-05-25] MEDS: NOVOLOG FLEXPEN-MODERATE RESISTANCE SC ×2 (11:58→18:06)
[2024-05-25] MEDS: SYNTHROID 200 MCG TUBE (12:58)
--- NOTE | 2024-05-25 13:29 | CM ---
CM following re: discharge planning.
Discussed in Rounds, reviewed pt's chart, met with pt and pt's spouse at bedside.
Pt is a 58 year old male, admitted with primary dx of Acute respiratory failure with hypoxia and hypercapnia now on mechanical ventilation. per Rounds meeting, pt intubated on the field, remains intubated, continue supportive care.
Pr lives with spouse 2SH, 2 steps to enter, has 3 stepchildren. 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
PCP: Jessica Reddy
D/C plan: uncertain at this time and will depend on pt's progress.
CM will follow with discharge plan updates as hospitalization progresses
--- NOTE | 2024-05-25 13:37 | W.PN.HOSP.TC ---
Today's Communication/Plan
-
Remained intubated
Assessment / Plan
Assessment / Plan
Assessment/plan:
Acute hypoxic/hypercarbic respiratory failure secondary to pneumonia/CHF exacerbation/asthma/COPD exacerbation
Vent dependent respiratory failure
Patient intubated by EMS, admitted to the ICU
# History of asthma/COPD
# Current smoker
-ABG shows pH of 7.11, pCO2 108, pO2 of 220,
-Salicylates and Tylenol negative, alcohol negative
-Propofol for sedation
-Naloxone given
-Levophed started
-DuoNebs as needed
-Dexamethasone 4 mg every 12
-CT head negative
-Urinalysis unremarkable
Septic shock secondary to interstitial pneumonia
-CT abdomen pelvis shows parenchymal airspace opacity within both lower lobes suspicious for pneumonia
-Check blood cultures
-IV fluids
-Vancomycin/Zosyn
-Patient currently on multiple pressors
-COVID-negative
Acute CHF Exacerbation:
Patient has acute diastolic congestive heart failure
BNP level is elevated at 6500
Troponin level is peaked at 0.394 continue to trend
Continue IV diuresing in form of Lasix 40 mg twice daily
Daily weight.
Strict I's and O's.
Most recent echo shows :
Normal left ventricular systolic function. LV ejection fraction is 60-65%.
Moderate concentric left ventricular hypertrophy.
Mildly enlarged right ventricular size. Mildly reduced right ventricular
systolic function.
No significant valve disease.
Possible carbon monoxide exposure
-Patient slept in truck overnight with truck turned on
-Carboxyhemoglobin of 3.1% however patient was a significant smoker
Acute kidney injury
both improved.
Nonischemic myocardial injury (type II IN, demand ischemia)
-Troponin 0.058
-Trend troponins
Echo shows:
Normal left ventricular systolic function. LV ejection fraction is 60-65%.
Moderate concentric left ventricular hypertrophy.
Mildly enlarged right ventricular size. Mildly reduced right ventricular
systolic function.
No significant valve disease.
Essential hypertension
-Hold lisinopril
Hypothyroidism
-Continue levothyroxine
Full code
DVT prophylaxis�heparin
N.p.o.
Anticipated Discharge: > 48 hours
Subjective/Interval History
-
Date of Service: May 25, 2024
Patient seen and examined bedside.
Patient currently intubated and sedated.
Mechanically ventilated.
Discussed with ICU team Dr. Alexey Pelitez.
Objective Data
-
Labs:
Laboratory Results
05/25/24 05/25/24
05:04 05:47
WBC 9.3
Hgb 13.7
Hct 44.2
Plt Count 275
HCO3 34.7 H
Sodium 144
Potassium 4.5
Chloride 103
Carbon Dioxide 34 H
BUN 35 H
Creatinine 1.1
Glucose 165 H
Calcium 8.0 L
Total Bilirubin 0.4
AST 66 H
ALT 89 H
Alkaline Phosphatase 106
Vital Signs:
Vital Signs
Temp Pulse Resp BP Pulse Ox
98.5 F 56 22 117/66 95
05/25/24 11:17 05/25/24 11:20 05/25/24 11:20 05/25/24 09:15 05/25/24 12:00
I&O
05/24/24 05/25/24 05/26/24
06:59 06:59 06:59
Intake Total 2350.6 / 2606.8 1272.2 / 1272.2
Output Total 2115 / 2155 640 / 640
Balance 235.6 / 451.8 632.2 / 632.2
Physical Exam
-
General: Well Developed and Intubated
HEENT: Normocephalic and Atraumatic
Respiratory: Wheezes, Rales and Rhonchi
Cardiac: Regular Rhythm and S1/S2
GI: Soft and Nondistended
Musculoskeletal: No Edema
Skin: Warm
Neuro: Sedated
[2024-05-25 14:40] LABS: Troponin I 0.329 ng/ml
[2024-05-25] MEDS: LOVENOX 40 MG SC (17:22)
[2024-05-25 17:57] LABS: Glucose - Point of Care 148 mg/dl (70-99)
--- NOTE | 2024-05-25 18:41 | PTCARENOTE ---
No changes in assessment thru day. Patient remains on 60%fio2 peep remains at 8cm. Will continue attempts to lower fio2 follow up lab trends in am as ordered, am chest xray as ordered. Continue with skin cares oral cares as per unit based protocols.
--- NOTE | 2024-05-25 19:38 | PTCARENOTE ---
On assessment pt intubated and sedated, unable to follow commands at this time, SR/SB on the monitor, prop gtt, Fen gtt, and fluids infusing per order, 7.5 ETT 24 at the lip, R nare NGT to low int. suction, santo in place
[2024-05-25 23:22] LABS: Glucose - Point of Care 175 mg/dl (70-99)
[2024-05-25] MEDS: ATIVAN 1 MG IV (23:58)
[2024-05-26] VITALS (32 sets, daily range): BP systolic 98–144; BP diastolic 61–93; BMI 42.8
[2024-05-26] MEDS: NSS (PRESERVATIVE FREE) 0.5 ML IV (00:27)
[2024-05-26] MEDS: ATIVAN 1 MG IV (00:27)
--- NOTE | 2024-05-26 01:46 | PTCARENOTE ---
HR 38-42, COMMUNITY DEVELOPMENT PLANNER made aware and PROP gtt was stopped and PRN ativan was ordered, pt agitated, restarted PROP at 10, HR was mid 40s. Now pt HR 39-42, will stop PROP and change to PRECEDEX gtt.
[2024-05-26] MEDS: PRECEDEX 100 IV (02:02)
[2024-05-26] MEDS: ZOSYN 50 IV ×4 (02:06→19:41)
[2024-05-26] MEDS: SUBLIMAZE 50 MCG IV ×2 (02:48→22:33)
[2024-05-26] MEDS: SUBLIMAZE 100 IV ×2 (02:49→16:00)
[2024-05-26 03:42] LABS: Hematocrit 42.9 % (39.0-52.0); Mean Corp Hgb Conc. 30.3 g/dL (33.0-37.0); Mean Corpuscular Hgb 26.3 pg (27.0-31.0); Mean Corpuscular Volume 86.8 fL (80.0-94.0); Mean Platelet Volume 10.8 fL (7.4-10.4); Platelet Count 251 10^3/uL (130-400); Red Blood Cell Count 4.94 10^6/uL (4.70-6.10); Red Cell Dist. Width 15.7 % (11.5-14.5); White Blood Cell Count 9.7 10^3/uL (4.8-10.8)
[2024-05-26 04:08] LABS: ALT (SGPT) 76 U/L (0-50); AST (SGOT) 40 U/L (17-59); Albumin 3.2 g/dl (3.5-5.0); Alkaline Phosphatase 97 U/L (38-126); Blood Urea Nitrogen 35 mg/dl (9-20); Calcium 8.2 mg/dl (8.4-10.2); Chloride 100 mmol/L (98-107); Estimated Creatinine Clearance 112 ml/min; Glucose 173 mg/dl (70-99); Magnesium 2.7 mg/dl (1.6-2.3); Potassium 4.1 mmol/L (3.5-5.1); Sodium 147 mmol/L (135-145); Total Bilirubin 0.3 mg/dl (0.2-1.3); Total Protein 5.7 g/dl (6.3-8.2); eGFR > 60.00
[2024-05-26 04:12] LABS: Procalcitonin 0.49 ng/ml (0.0-0.25)
[2024-05-26 04:13] LABS: Vancomycin Trough 10.1 ug/ml (5-20)
[2024-05-26 04:18] LABS: Carbon Dioxide 35 mmol/L (22-30)
[2024-05-26 05:10] LABS: Free T4 0.63 ng/dl (0.78-2.19)
[2024-05-26 05:13] LABS: B.E. 13.8 mmol/L; O2 Saturation % 97.5 % (94-98); PCO2 55 mmHg (35-48); PO2 77 mmHg (83-108); pH 7.47 (7.35-7.45)
[2024-05-26] MEDS: NSS (PRESERVATIVE FREE) 1 ML IV (05:17)
[2024-05-26] MEDS: ATIVAN 2 MG IV (05:17)
[2024-05-26] MEDS: NOVOLOG FLEXPEN-MODERATE RESISTANCE 1 UNITS SC ×2 (05:30→17:32)
[2024-05-26] MEDS: SYNTHROID 200 MCG TUBE (05:31)
[2024-05-26 05:39] LABS: Glucose - Point of Care 176 mg/dl (70-99)
--- NOTE | 2024-05-26 05:53 | PTCARENOTE ---
Pt continues with HR 32-48, FIELD CROP FARMWORKER aware and at bedside, DEX stopped and Fen decreased, pt more alert but trying to grab for the ETT, Ativan given PRN and verified with FIELD CROP FARMWORKER due to HR, pt able to follow commands and tracks.
[2024-05-26] MEDS: VANCOCIN 275 MG IV (06:05)
[2024-05-26] MEDS: DUONEB 3 ML INH ×4 (07:23→19:51)
--- NOTE | 2024-05-26 08:01 | PHA.VAN.FU ---
Vancomycin Assessment / Plan
- Assessment
Renal Function: SCR Decreasing
WBC's are: WNL
In the past 24 hrs, patient has been: Afebrile
Concomitant Antimicrobials: piperacillin/tazobactam
- Assessment - Therapeutic Drug Monitoring
Random Level: 10.1 - drawn ~10H after 2nd dose of 1250mg
- Dosing Plan
Adjust Regimen to: Vanc 1500mg Q12H starting at 1800
Patient having additional accumulation but SCR continues to decrease
Level may remain subtherapeutic by end of full dosing interval
Will tentatively increase dosing
- Monitoring Plan
No level(s) ordered at this time: consider levels in next few days
- Follow Up
Pharmacy will continue to follow.
Vancomycin Follow UP
- -
Patient Age: 58
Patient Sex: Male
Vancomycin Day #: 3
Indication: Pulmonary/Respiratory
Requesting Provider: Dr. Raman
Pertinent Antimicrobial Allergies:
NKDA
Height / Weight:
Height 5 ft 7 in
Actual Weight 123.8 kg
Pertinent Past Medical History: BMI 42
- Vital Signs / Lab Results
Temp Pulse Resp BP Pulse Ox
98.0 F 50 22 113/68 96
05/26/24 03:27 05/26/24 07:24 05/26/24 07:24 05/26/24 06:15 05/26/24 07:31
Lab Results - Hematology
05/24/24 05/25/24 05/26/24
13:31 05:47 03:20
WBC 8.1 9.3 9.7
Band Neutrophils 17 H
Lab Results - Chemistry
05/24/24 05/25/24 05/26/24
13:31 05:47 03:20
BUN 43 H 35 H 35 H
Creatinine 2.2 H 1.1 0.9
Estimated Creat Clear 46 92 112
Albumin 4.2 3.2 L 3.2 L
05/24/24 05/24/24 05/24/24
13:31 18:26 18:29
Lactic Acid 4.7 H* Cancelled 1.1
Microbiology Results
05/24/24 14:42 Urine Culture - Final
Urine NO GROWTH
05/24/24 14:42 Blood Culture - Preliminary
Blood/Venous Positive culture in progress
Gram Stain - Final
05/24/24 21:46 Gram Stain - Preliminary
Endotracheal
05/24/24 14:42 Blood Culture - Preliminary
Blood/Venous Positive culture in progress
Gram Stain - Preliminary
05/24/24 14:42 Legionella Urinary Antigen - Final
Urine Negative for Legionella pneumophila Serogroup 1 antigen.
A negative result does not rule out the possiblity of
Legionella infection due to other serogroups or species of
Legionella. Clinical correlation is recommended.
Streptococcus pneumoniae Antigen (M - Final
Negative for Streptococcus pneumoniae antigen.
A negative result does not exclude infection with
Streptococcus pneumoniae. Clinical correlation is
recommended.
05/24/24 14:00 Influenza Types A & B (BITA) - Final
Nasal Swab Negative for Influenza A & B, NAAT
Negative results must be combined with clinical observations
and patient history.
Nucleic Acid Amplification test (NAAT)performed on the
[employer] platform.
Therapeutic Drug Monitoring
Vancomycin Trough 10.1 ug/ml (5-20) 05/26/24 03:20
Random Vancomycin 7.8 ug/ml 05/25/24 05:47
[2024-05-26] MEDS: MIRALAX 17 GRAMS TUBE (08:30)
--- NOTE | 2024-05-26 08:31 | W.PN.INTV ---
Today's Communication / Plan
Recommendations
Cinder Block Maker ventilation
SAT/SBT daily if clinically appropriate
Consider bronchoscopy tomorrow prior to hopeful extubation; if his CXR is unchanged and ETT secretions have markedly improved then he may not need bronchoscopy
Monitor ETT secretions and clamp NGT; will start TF later today if he is tolerating clamp trial
Goal RASS 0 to -2
Systemic steroids with wean as he clinically improves
Antibiotics
Follow-up cultures
Nebulized bronchodilators
Aspiration precautions
Levothyroxine; trend TFTs
Critically ill, continue ICU level of care
Assessment
-
58-year-old male with a past medical history of tobacco use disorder, hypertension, hypothyroidism and reported history of asthma who presents with altered mental status. Found to be hypoxic and intubated in the field. Brought to the ER where he
was found to have a pneumonia with upper lobe predominant emphysema. Transferred to the ICU on vasopressors for further care with manager appointment services consulted for additional management/recommendations.
Impression:
#Acute respiratory failure with hypoxia and hypercapnia now on mechanical ventilation
#CAP involving bilateral lower lobes
#Septic shock due to above
#Hypothermia likely due to septic shock from LLL pneumonia
#Centrilobular emphysema with concern for COPD with acute exacerbation
#MAGGI (unknown Cr baseline) with elevated potassium - K level now normalized and Cr improving
#Lactic acidosis - resolved
#Elevated troponin - peaked at 0.394 on 05/25/2024
#Acute decompensated heart failure (mild)
#Right ventricular systolic dysfunction (seen on TTE from 05/25/2024)
#Hypothyroidism with severely elevated TSH of 60.4 with free T4 0.49
#Hyperglycemia - improved
#Transaminitis
Plan:
- Continue with mechanical ventilation with daily SAT/SBT if clinically appropriate
��������������� - Titrate FiO2 + PEEP to maintain SpO2 >90-94%
- Lower PEEP to 5
��������������� - Maintain plateau pressure < 30
��������������� - DuoNebs QID given he was wheezing on exam on admission and we are treating for an AECOPD
��������������� - Decadron 6mg IV q12hr --> 4mg IV q12hr; continue to wean as he clinically improves
��������������� - Maintain euglycemia while on high-dose steroids with goal BG 140�180; use ISS
��������������� - Lightly sedated with goal RASS -1 to -2 w/daily SAT
- Consider bronchoscopy tomorrow AM prior to hopeful extubation for pulmonary toilet purposes
- Broad spectrum Abx
��������������� - Follow up blood Cx - BCx from 05/24/2024 is growing coagulase-negative staph, however other BCx is growing GPC in clusters (anaerobic bottle only) - follow up species + sensitivities
��������������� - Follow up sputum Cx; legionella/Strep PNA urine antigens both negative
- Continue empiric treatment with antibiotics with vancomycin/Zosyn
��������������� - Maintain normothermia with Sintia hugger prn
- Continue vasopressors with goal MAP>65
��������������� - Give 40mg IV lasix x1 given concern for continued interstitial edema on CXR this AM
��������������� - 2D-echo done on 05/25/2024 showed preserved LVEF at 60-85% with moderate concentric LVH, and mildly enlarged RV with mildly reduced RV systolic function
��������������� - Consider cardiology consult
- Started IV levothyroxine with 150mcg daily on 05/24 --> changed IV LT4 to PO on 05/25; repeat TSH today shows it is improving; c/t trend with repeat in another 48-72 hrs to assess for improvement
- No longer need to trend troponin given it peaked at 0.394 this morning
- No longer need to trend lactate given it is now <2mmol/L
- Trend LFTs
- Trend sCr and BUN; renally dose all meds/Abx; monitor I/O and UOP
- Stress ulcer ppx with pepcid
- NGT currently to LIWS with improved output --> will clamp for now and then if tolerates this without worsening abdominal distention, nausea or pain then will consider starting tube feeds
- DVT ppx: LMWH
Continue with ICU level care for this critically ill patient.
Critical care statement: A total of 38 minutes of critical care time was provided for this patient today. This includes management of unstable vital signs, evaluation of the patient at bedside, reviewing the patient's pertinent medical records
including radiographs, microbiology, laboratory evaluations, and discussion with primary team, consultants, pharmacy, nutrition, physical therapy, case management, charge nurse, critical care nursing, and respiratory therapy.
Data:
Transthoracic echocardiogram 05/25/2024:
Normal left ventricular systolic function. LV ejection fraction is 60-65%.
Moderate concentric left ventricular hypertrophy.
Mildly enlarged right ventricular size. Mildly reduced right ventricular
systolic function.
No significant valve disease.
CTA chest/CT abdomen/pelvis with contrast 05/24/2024:
Examination is negative for pulmonary embolism.
Parenchymal airspace opacity within both lower lobes, left greater than right, with findings suspicious for pneumonia. Atelectasis could have a similar appearance.
Changes of emphysema within both lungs, mainly within the upper lungs.
Mild diffuse increased interstitial markings, which could represent interstitial pneumonitis and/or interstitial edema.
Endotracheal tube with tip 3.2 cm above the swati.
Nasogastric tube with tip in the mid to distal esophagus. This tube should be repositioned.
No evidence for bowel obstruction. No evidence for free intraperitoneal air.
CXR 05/26/2024: Interval development of mild opacity at the left lung base, atelectasis versus pneumonia. No significant change in generalized prominence of bronchovascular markings. A nasogastric tube extends into the stomach.
Subjective Dataa
Subjective Data
Date of Service:
Date of Service: May 26, 2024
Chief Complaint: Combination Man Follow Up
Subjective:
Pt seen and evaluated this AM. Remains intubated and placed onto a wean on 10/24 at 50%. NGT on LIWS. He is continuing to have ETT secretions that are improved but still thick and knutson. Patient's at bedside and answered all of her questions.
He became tachypneic while on a SBT and then flipped back to AC/CMV at 16/450/50%/5, with PIP: 32 cmH2O, VTe 411mL and breathing at 16 breaths/min. Propofol was also resumed and titrated to 20mcg/kg/min, and fentanyl raised from 25mcg/hr to
75mcg/hr. He remains on Levophed at 1mcgm/min. Currently, heart rate 55, BP 122/86, end-tidal CO2 is 42 while back on CMV, otherwise was in the 50�60s while on an SBT. He is saturating 91%.
Review of Systems
General: Unobtainable - Sedation
Objective Data
Data Reviewed
Vital Signs / I&O / Oxygen:
Vital Signs
Temp Pulse Resp BP Pulse Ox
97.7 F 54 22 127/65 92
05/26/24 08:09 05/26/24 08:56 05/26/24 08:56 05/26/24 08:56 05/26/24 08:56
Intake and Output
05/25/24 05/26/24 05/27/24
06:59 06:59 06:59
Intake Total 2350.6 / 2606.8 2582.9 / 2597.9 30.0 / 30.0
Output Total 2115 / 2155 2920 / 2970 100 / 100
Balance 235.6 / 451.8 -337.1 / -372.1 -70.0 / -70.0
SaO2 [A/C] 94
SaO2 92
Physical Exam
General: Respiratory Distress (negative), Chills (negative) and Sweats (negative)
HEENT: Normocephalic, Anicteric and Other (ETT in place)
Cardiovascular: S1-S2 and Peripheral Edema (negative)
Respiratory: Wheeze (negative), Crackles (Bilateral), Rhonchi (Bilateral), Non-Labored Respirations and ET Tube (Mechanical breath sounds heard bilaterally)
GI: Soft, Distended (Abdominal obesity), Non Tender and Normal Bowel Sounds
Neurology: Awake (During SBT), Tremors (negative) and Other (pupils 3 mm bilaterally and sluggish)
Skin: Warm, Dry, Cyanosis (negative) and Jaundice (negative)
Labs/Micro/Reports
Lab Data
05/26/24 03:20
05/26/24 03:20
Laboratory Results
05/26/24
05:04
pH 7.47 H
pCO2 55 H
pO2 77 L
HCO3 40.0 H
O2 Delivery Level
Microbiology
05/24/24 18:28 Nose MRSA Screen - Final
No Methicillin Resistant Staphylococcus aureus isolated.
05/24/24 14:42 Urine Urine Culture - Final
NO GROWTH
05/24/24 14:42 Blood/Venous Blood Culture - Preliminary
Positive culture in progress
05/24/24 14:42 Blood/Venous Gram Stain - Final
05/24/24 21:46 Endotracheal Gram Stain - Preliminary
05/24/24 14:42 Blood/Venous Blood Culture - Preliminary
Positive culture in progress
05/24/24 14:42 Blood/Venous Gram Stain - Preliminary
05/24/24 14:42 Urine Legionella Urinary Antigen - Final
Negative for Legionella pneumophila Serogroup 1 antigen.
A negative result does not rule out the possiblity of
Legionella infection due to other serogroups or species of
Legionella. Clinical correlation is recommended.
05/24/24 14:42 Urine Streptococcus pneumoniae Antigen (M - Final
Negative for Streptococcus pneumoniae antigen.
A negative result does not exclude infection with
Streptococcus pneumoniae. Clinical correlation is
recommended.
05/24/24 14:00 Nasal Swab Influenza Types A & B (BITA) - Final
Negative for Influenza A & B, NAAT
Negative results must be combined with clinical observations
and patient history.
Nucleic Acid Amplification test (NAAT)performed on the
[employer] platform.
[2024-05-26] MEDS: PEPCID 20 MG TUBE (08:32)
--- NOTE | 2024-05-26 10:03 | W.PN.HOSP.TC ---
Addendum entered and electronically signed by Brit Hood MD 05/26/24 14:19:
BMI > or = to 40
Original Note:
Today's Communication/Plan
-
Remained intubated
Assessment / Plan
Assessment / Plan
Assessment/plan:
Acute hypoxic/hypercarbic respiratory failure secondary to pneumonia/CHF exacerbation/asthma/COPD exacerbation
Vent dependent respiratory failure
Patient intubated by EMS, admitted to the ICU
# History of asthma/COPD
# Current smoker
-ABG shows pH of 7.11, pCO2 108, pO2 of 220,
-Salicylates and Tylenol negative, alcohol negative
-Propofol for sedation
-Naloxone given
-Levophed started
-DuoNebs as needed
-Dexamethasone 4 mg every 12
-CT head negative
-Urinalysis unremarkable
Septic shock secondary to interstitial pneumonia
-CT abdomen pelvis shows parenchymal airspace opacity within both lower lobes suspicious for pneumonia
-Check blood cultures
-IV fluids
-Vancomycin/Zosyn
-Patient currently on multiple pressors
-COVID-negative
Acute CHF Exacerbation:
Patient has acute diastolic congestive heart failure
BNP level is elevated at 6500
Troponin level is peaked at 0.394 continue to trend
Continue IV diuresing in form of Lasix 40 mg twice daily
Daily weight.
Strict I's and O's.
Most recent echo shows :
Normal left ventricular systolic function. LV ejection fraction is 60-65%.
Moderate concentric left ventricular hypertrophy.
Mildly enlarged right ventricular size. Mildly reduced right ventricular
systolic function.
No significant valve disease.
Possible carbon monoxide exposure
-Patient slept in truck overnight with truck turned on
-Carboxyhemoglobin of 3.1% however patient was a significant smoker
Acute kidney injury
both improved.
Nonischemic myocardial injury (type II AL, demand ischemia)
-Troponin 0.058
-Trend troponins
Echo shows:
Normal left ventricular systolic function. LV ejection fraction is 60-65%.
Moderate concentric left ventricular hypertrophy.
Mildly enlarged right ventricular size. Mildly reduced right ventricular
systolic function.
No significant valve disease.
Essential hypertension
-Hold lisinopril
Hypothyroidism
TSH 60.4 repeat 20
-Continue levothyroxine IV
Full code
DVT prophylaxis�heparin
N.p.o.
Anticipated Discharge: > 48 hours
Subjective/Interval History
-
Date of Service: May 26, 2024
Patient seen and examined at bedside, still intubated but more awake today.
Answer question by moving his head.
Heart rate was low overnight but improved.
Objective Data
-
Labs:
Laboratory Results
05/26/24 05/26/24
03:20 05:04
WBC 9.7
Hgb 13.0
Hct 42.9
Plt Count 251
HCO3 40.0 H
Sodium 147 H
Potassium 4.1
Chloride 100
Carbon Dioxide 35 H
BUN 35 H
Creatinine 0.9
Glucose 173 H
Calcium 8.2 L
Total Bilirubin 0.3
AST 40
ALT 76 H
Alkaline Phosphatase 97
Vital Signs:
Vital Signs
Temp Pulse Resp BP Pulse Ox
97.7 F 54 22 127/65 92
05/26/24 08:09 05/26/24 08:56 05/26/24 08:56 05/26/24 08:56 05/26/24 08:56
I&O
05/25/24 05/26/24 05/27/24
06:59 06:59 06:59
Intake Total 2350.6 / 2606.8 2582.9 / 2597.9 30.0 / 30.0
Output Total 5 / 2155 2920 / 2970 100 / 100
Balance 235.6 / 451.8 -337.1 / -372.1 -70.0 / -70.0
Physical Exam
-
General: Well Developed and Intubated
HEENT: Normocephalic and Atraumatic
Respiratory: Wheezes, Rales and Rhonchi
Cardiac: Regular Rhythm and S1/S2
GI: Soft and Nondistended
Musculoskeletal: No Edema
Skin: Warm
Neuro: Sedated
[2024-05-26] MEDS: DECADRON 4 MG IV ×2 (11:05→22:51)
[2024-05-26] MEDS: LASIX 40 MG IV (11:45)
[2024-05-26 12:06] LABS: Glucose - Point of Care 136 mg/dl (70-99)
--- NOTE | 2024-05-26 12:12 | PTCARENOTE ---
Updated assessment vital signs ongoing and as documented. Follow up SBT and weaning trends. Patient trial on 50%fio2 this am, then progressed too 50%fio2 FO5Wchm% followed until etco2 was greater than 50 and patient then no pulling adequate tv and
rates. Data Collection Interviewer team at bedside thru am wean. Updates with pharmacy and critical care team in rounds. Update with at bedside thru morning and rounds. Present assessment returned to sedation, returned to a/c mode with new settings, lasix dose
as ordered, will follow critical input output trends. Assessment ongoing. Oral cares, skin cares as per unit based protocol.
--- NOTE | 2024-05-26 12:15 | PN.CDI ---
CDI
- -
CDI:
Physician Documentation Request
Admit Date: 05/24/24 16:29
Dear Doctor Erwin,
Please review the following and provide your response in the progress notes.
Clinical Indicators:
Height: 5 ft 7 in
Weight:272 lb 14.9 0z
BMI:43.1
If possible, please provide an associated diagnosis related to the abnormal BMI, such as:
BMI > or = to 40
Obesity:
Due to excess calories
Drug induced
Due to other cause
Severe or morbid obesity:
With alveolar hypoventilation (Obesity hypoventilation syndrome)
Without alveolar hypoventilation
- Other
Use of terms such as suspected, likely, concern for, or probable (associated with a specific diagnosis that is being evaluated, monitored, or treated as if it exists) are acceptable and can be coded in the inpatient setting, when documented at the
time of discharge.
Thank you,
iN Mccartney RN
CDI Specialist
[place] [facility]
Please use your independent medical judgment in providing your response.
[2024-05-26 13:39] LABS: Glucose - Point of Care 137 mg/dl (70-99)
[2024-05-26 14:04] LABS: Triglycerides 300 mg/dl (10-149)
[2024-05-26] MEDS: NOVOLOG FLEXPEN-MODERATE RESISTANCE SC ×2 (14:15→23:14)
--- NOTE | 2024-05-26 14:32 | PTCARENOTE ---
Patient continues to diuresis post lasix. 1600ml out as of this assessment. Levophed presently off. Light sedation in use. Rass-1 at this assessment. Wakes easily with touch or verbal stimuli. Saturation on 50%fio2 and 5 of peep 93-94%. Updates with
on phone to return later.
[2024-05-26] MEDS: DIPRIVAN 100 IV ×2 (16:00→19:41)
[2024-05-26] MEDS: LOVENOX 40 MG SC (17:31)
[2024-05-26] MEDS: VANCOCIN 530 MG IV (17:31)
[2024-05-26 17:42] LABS: Glucose - Point of Care 160 mg/dl (70-99)
--- NOTE | 2024-05-26 20:00 | PTCARENOTE ---
pt received from previous rn- ett to vent- opens eyes to tactile and verbal- follows commands. restless at times. remains on propofol and fentanyl per order. santo draining yellow urine. levophed off. see vent settings. sinus rosa on monitor with
1st degree. poc discussed with lauren cuellar. all safety precautions in place. right fem central line c/d/i, flushes, one lumen without blood return/ positional. peripherl ints c/d/i.
--- NOTE | 2024-05-26 20:30 | PTCARENOTE ---
pt received from previous rn- ett to vent- opens eyes to tactile and verbal- follows commands. restless at times. remains on propofol and fentanyl per order. santo draining yellow urine. levophed off. see vent settings. sinus rosa on monitor with
1st degree. poc discussed with lauren cuellar. all safety precautions in place. right fem central line c/d/i. peripheral ints c/d/i. suctioned for knutson thick secretions.
[2024-05-26 23:03] LABS: Glucose - Point of Care 135 mg/dl (70-99)
--- NOTE | 2024-05-26 23:16 | PTCARENOTE ---
assessment unchanged. full bed bath/chg provided. turned and repositioned.
[2024-05-27] VITALS (29 sets, daily range): BP systolic 97–188; BP diastolic 62–93; BMI 41.7
[2024-05-27] MEDS: DIPRIVAN 100 IV ×5 (00:51→20:45)
[2024-05-27] MEDS: DESENEX/MITRAZOL/ZEASORB 1 APPLIC TOPICAL ×3 (00:52→20:51)
[2024-05-27] MEDS: ZOSYN 50 IV ×2 (00:55→07:21)
[2024-05-27] MEDS: SUBLIMAZE 50 MCG IV (02:59)
--- NOTE | 2024-05-27 04:22 | PTCARENOTE ---
assessment unchanged. labs sent. prn fentaynl given for increased cpot and biting et tube. turned and repositioned oral care provided.
[2024-05-27 04:46] LABS: Hematocrit 44.8 % (39.0-52.0); Hemoglobin 13.1 g/dL (13.0-18.0); Mean Corp Hgb Conc. 29.2 g/dL (33.0-37.0); Mean Corpuscular Hgb 26.6 pg (27.0-31.0); Mean Corpuscular Volume 90.9 fL (80.0-94.0); Mean Platelet Volume 10.5 fL (7.4-10.4); Platelet Count 258 10^3/uL (130-400); Red Blood Cell Count 4.93 10^6/uL (4.70-6.10); Red Cell Dist. Width 16.4 % (11.5-14.5); White Blood Cell Count 10.1 10^3/uL (4.8-10.8)
[2024-05-27 05:05] LABS: Blood Urea Nitrogen 33 mg/dl (9-20); Calcium 8.5 mg/dl (8.4-10.2); Carbon Dioxide 39 mmol/L (22-30); Chloride 102 mmol/L (98-107); Estimated Creatinine Clearance 111 ml/min; Glucose 149 mg/dl (70-99); Magnesium 2.9 mg/dl (1.6-2.3); Phosphorus 4.3 mg/dl (2.5-4.5); Potassium 4.8 mmol/L (3.5-5.1); Sodium 145 mmol/L (135-145); Triglycerides 252 mg/dl (10-149); eGFR > 60.00
[2024-05-27 05:12] LABS: NT-proBNP 130 pg/ml
[2024-05-27] MEDS: SUBLIMAZE 100 IV ×2 (05:26→19:17)
[2024-05-27] MEDS: SYNTHROID 200 MCG TUBE (05:29)
[2024-05-27] MEDS: VANCOCIN 530 MG IV ×2 (05:29→20:45)
[2024-05-27 05:41] LABS: B.E. 13.4 mmol/L; O2 Saturation % 96.5 % (94-98); PCO2 61 mmHg (35-48); PO2 74 mmHg (83-108); pH 7.43 (7.35-7.45)
[2024-05-27] MEDS: NOVOLOG FLEXPEN-MODERATE RESISTANCE SC ×2 (05:41→12:14)
[2024-05-27 05:51] LABS: Glucose - Point of Care 140 mg/dl (70-99)
[2024-05-27 05:51] LABS: HCO3 40.5 mmol/L (21-28)
[2024-05-27] MEDS: MIRALAX 17 GRAMS TUBE (07:23)
[2024-05-27] MEDS: PEPCID 20 MG TUBE (07:23)
--- NOTE | 2024-05-27 07:29 | PTCARENOTE ---
Received patient from security shift supervisor RN. Patient shift assessment as charted. Patient remains intubated, sedated. AC settings 16/450/5/50% with oxygen saturation of 93%. Patient is bradycardic, HR 40s on monitor. Patient is NPO with NGT clamped.
[place] draining yellow urine. Fenanyl, propofol gtts infusing into right triple lumen femoral line. Will review orders, bed in lowest position and safe environment maintained.
[2024-05-27] MEDS: DUONEB 3 ML INH ×4 (07:42→20:25)
--- NOTE | 2024-05-27 08:28 | W.PN.INTV ---
Today's Communication / Plan
Recommendations
Communication Signals Intelligence ventilation
SAT/SBT daily if clinically appropriate
Consider bronchoscopy prior to extubation; if his CXR is unchanged and ETT secretions have markedly improved then he may not need bronchoscopy
Monitor ETT secretions and start trickle rate TF
Goal RASS 0 to -2
Systemic steroids with wean as he clinically improves
Continue antibiotics and will also start zithromax for atypical coverage and also for anti-inflammatory properties given his current suspected COPD flare
Follow-up cultures
Nebulized bronchodilators
Aspiration precautions
Levothyroxine; trend TFTs
Critically ill, continue ICU level of care
Assessment
-
58-year-old male with a past medical history of tobacco use disorder, hypertension, hypothyroidism and reported history of asthma who presents with altered mental status. Found to be hypoxic and intubated in the field. Brought to the ER where he
was found to have a pneumonia with upper lobe predominant emphysema. Transferred to the ICU on vasopressors for further care with paralegal secretary services consulted for additional management/recommendations.
Impression:
#Acute respiratory failure with hypoxia and hypercapnia now on mechanical ventilation
#CAP involving bilateral lower lobes
#Septic shock due to above - shock state now resolved since 05/26
#Hypothermia likely due to septic shock from LLL pneumonia - hypothermia now resolved
#Centrilobular emphysema with concern for COPD with acute exacerbation
#MAGGI (unknown Cr baseline) with elevated potassium - resolved
#Lactic acidosis - resolved
#Elevated troponin - peaked at 0.394 on 05/25/2024
#Acute decompensated heart failure (mild)
#Right ventricular systolic dysfunction (seen on TTE from 05/25/2024)
#Hypothyroidism with severely elevated TSH of 60.4 with free T4 0.49
#Hyperglycemia - improved
#Transaminitis
Plan:
- Continue with mechanical ventilation with daily SAT/SBT if clinically appropriate
��������������� - Titrate FiO2 + PEEP to maintain SpO2 88-95%
- Raise PEEP if needed to keep SpO2 at goal as above
��������������� - Maintain plateau pressure < 30
��������������� - DuoNebs QID given he was wheezing on exam on admission and we are treating for an AECOPD
��������������� - Decadron 6mg IV q12hr --> 4mg IV q12hr --> change steroids to solumedrol 40mg IV q8hr; continue to wean as he clinically improves
��������������� - Maintain euglycemia while on high-dose steroids with goal BG 140�180; use ISS
��������������� - Lightly sedated with goal RASS -1 to -2 w/daily SAT
- Consider bronchoscopy prior to extubation for pulmonary toilet purposes
- Start mucinex
- Broad spectrum Abx
��������������� - Blood cultures from 05/24 are growing Staphylococcus simulans which is sensitive to oxacillin - can narrow ABx from Zosyn to Unasyn and given that he was septic and in shock , would give 14 days of ABx from date of first negative
blood Cx
- Currently on IV vanco, but may not need this - will consider stopping it
��������������� - Follow up sputum Cx (NGTD); legionella/Strep PNA urine antigens both negative
- Start Zithromax for atypical coverage as well as anti-inflammatory effect given suspected COPD with acute exacerbation; trend QTc
��������������� - Maintain normothermia with Sintia hugger prn
- Continue vasopressors with goal MAP>65
��������������� - Give 40mg IV lasix x1 again this AM given concern for continued interstitial edema on CXR (received IV lasix 40mg on 05/26 as well)
- proBNP is 130 today (05/27)
��������������� - 2D-echo done on 05/25/2024 showed preserved LVEF at 60-85% with moderate concentric LVH, and mildly enlarged RV with mildly reduced RV systolic function
��������������� - Consider cardiology consult
- Started IV levothyroxine with 150mcg daily on 05/24 --> changed IV LT4 to PO on 05/25; repeat TSH today shows it is improving; c/t trend with repeat in another 48-72 hrs to assess for improvement
- No longer need to trend troponin given it peaked at 0.394 this morning
- No longer need to trend lactate given it is now <2mmol/L
- Trend LFTs
- Trend sCr and BUN; renally dose all meds/Abx; monitor I/O and UOP
- Stress ulcer ppx: N/A
- Start tube feeds at trickle rate, and if he tolerates this then can raise rate higher to goal if he is without abdominal distention, nausea or pain
- DVT ppx: LMWH
Continue with ICU level care for this critically ill patient.
Critical care statement: A total of 41 minutes of critical care time was provided for this patient today. This includes management of unstable vital signs, evaluation of the patient at bedside, reviewing the patient's pertinent medical records
including radiographs, microbiology, laboratory evaluations, and discussion with primary team, consultants, pharmacy, nutrition, physical therapy, case management, charge nurse, critical care nursing, and respiratory therapy.
Data:
Transthoracic echocardiogram 05/25/2024:
Normal left ventricular systolic function. LV ejection fraction is 60-65%.
Moderate concentric left ventricular hypertrophy.
Mildly enlarged right ventricular size. Mildly reduced right ventricular
systolic function.
No significant valve disease.
CTA chest/CT abdomen/pelvis with contrast 05/24/2024:
Examination is negative for pulmonary embolism.
Parenchymal airspace opacity within both lower lobes, left greater than right, with findings suspicious for pneumonia. Atelectasis could have a similar appearance.
Changes of emphysema within both lungs, mainly within the upper lungs.
Mild diffuse increased interstitial markings, which could represent interstitial pneumonitis and/or interstitial edema.
Endotracheal tube with tip 3.2 cm above the swati.
Nasogastric tube with tip in the mid to distal esophagus. This tube should be repositioned.
No evidence for bowel obstruction. No evidence for free intraperitoneal air.
CXR 05/26/2024:
Interval development of mild opacity at the left lung base, atelectasis versus pneumonia. No significant change in generalized prominence of bronchovascular markings. A nasogastric tube extends into the stomach.
CXR 05/27/2024:
Endotracheal tube is present with tip in good position mid trachea. Nasogastric tube, tip extending off the inferolateral the radiograph.
Parenchymal opacity within the left lower lung, appears slightly increased from most recent radiograph. This most likely represents pneumonia, although there could also be a component of atelectasis.
Increased interstitial markings within the right lower lung and the left midlung, suspicious for interstitial component of pneumonitis and/or bronchitis/bronchiolitis.
Subjective Dataa
Subjective Data
Date of Service:
Date of Service: May 27, 2024
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
Subjective:
Pt seen and evaluated this AM. Is currently on a ventilator wean at 5/5 at 50%. He is awake, following commands, still with copious knutson/clear secretions but he is coughing it up ok through ETT and also around ETT out his mouth; nurses are
frequently suctioning. Been off levophed since yesterday evening. ETCO2 45. at bedside and I answered all of her questions.
Review of Systems
General: Unobtainable - Sedation
Objective Data
Data Reviewed
Vital Signs / I&O / Oxygen:
Vital Signs
Temp Pulse Resp BP Pulse Ox
97.9 F 65 16 125/85 95
05/27/24 07:55 05/27/24 08:17 05/27/24 08:17 05/27/24 08:00 05/27/24 08:17
Intake and Output
05/26/24 05/27/24 05/28/24
06:59 06:59 06:59
Intake Total 2582.9 / 2597.9 1341.00 / 1367.10 44.8 / 44.8
Output Total 2920 / 2970 3240 / 3260
Balance -337.1 / -372.1 -1899.00 / -1892.90 24.8 / 24.8
SaO2 [A/C] 94
SaO2 95
Physical Exam
General: Respiratory Distress (negative), Chills (negative) and Sweats (negative)
HEENT: Normocephalic, Anicteric and Other (ETT in place)
Cardiovascular: S1-S2 and Peripheral Edema (negative)
Respiratory: Wheeze (negative), Crackles (Bilateral), Rhonchi (Bilateral), Non-Labored Respirations and ET Tube (Mechanical breath sounds heard bilaterally)
GI: Soft, Distended (Abdominal obesity), Non Tender and Normal Bowel Sounds
Neurology: Awake (During SBT and does become lethargic at times), Tremors (negative) and Other (pupils 3 mm bilaterally and sluggish)
Skin: Warm, Dry, Cyanosis (negative) and Jaundice (negative)
Labs/Micro/Reports
Lab Data
05/27/24 04:18
05/27/24 04:18
Laboratory Results
05/27/24
05:32
pH 7.43
pCO2 61 H
pO2 74 L
HCO3 40.5 H*
O2 Delivery Level
Microbiology
05/24/24 14:42 Blood/Venous Blood Culture - Preliminary
Positive culture in progress
05/24/24 14:42 Blood/Venous Gram Stain - Preliminary
05/24/24 14:42 Blood/Venous Blood Culture - Preliminary
Positive culture in progress
05/24/24 14:42 Blood/Venous Gram Stain - Final
05/24/24 21:46 Endotracheal Respiratory Culture - Preliminary
05/24/24 21:46 Endotracheal Gram Stain - Preliminary
05/24/24 18:28 Nose MRSA Screen - Final
No Methicillin Resistant Staphylococcus aureus isolated.
05/24/24 14:42 Urine Urine Culture - Final
NO GROWTH
05/24/24 14:42 Urine Legionella Urinary Antigen - Final
Negative for Legionella pneumophila Serogroup 1 antigen.
A negative result does not rule out the possiblity of
Legionella infection due to other serogroups or species of
Legionella. Clinical correlation is recommended.
05/24/24 14:42 Urine Streptococcus pneumoniae Antigen (M - Final
Negative for Streptococcus pneumoniae antigen.
A negative result does not exclude infection with
Streptococcus pneumoniae. Clinical correlation is
recommended.
05/24/24 14:00 Nasal Swab Influenza Types A & B (BITA) - Final
Negative for Influenza A & B, NAAT
Negative results must be combined with clinical observations
and patient history.
Nucleic Acid Amplification test (NAAT)performed on the
[employer] platform.
[2024-05-27] MEDS: LASIX 40 MG IV (08:59)
[2024-05-27 09:48] LABS: B.E. 9.9 mmol/L; HCO3 39.8 mmol/L (21-28); O2 Saturation % 88.3 % (94-98); PO2 60 mmHg (83-108); pH 7.31 (7.35-7.45)
[2024-05-27 09:52] LABS: PCO2 79 mmHg (35-48)
--- NOTE | 2024-05-27 10:36 | PTCARENOTE ---
wean ended after blood gas. patient had two episodes of coughing up copious amounts of clear mucous. sedation back on.
[2024-05-27] MEDS: DECADRON 4 MG IV (10:56)
--- NOTE | 2024-05-27 11:21 | PHA.VAN.FU ---
Vancomycin Assessment / Plan
- Assessment
Renal Function: Stable (0.9)
WBC's are: WNL
In the past 24 hrs, patient has been: Afebrile
Concomitant Antimicrobials: piperacillin/tazobactam
- Dosing Plan
Continue: vancomycin 1500 mg q12h - first dose 12.5 1800
- Monitoring Plan
No level(s) ordered at this time: consider levels after jordan dose Sat - (5th dose)
- Follow Up
Pharmacy will continue to follow.
Vancomycin Follow UP
- -
Patient Age: 58
Patient Sex: Male
Vancomycin Day #: 4
Indication: Pulmonary/Respiratory
Requesting Provider: Dr. Raman
Pertinent Antimicrobial Allergies:
NKDA
Height / Weight:
Height 5 ft 7 in
Actual Weight 120.6 kg
Pertinent Past Medical History: BMI 42
- Vital Signs / Lab Results
Temp Pulse Resp BP Pulse Ox
97.9 F 75 15 188/93 91
05/27/24 07:55 05/27/24 10:30 05/27/24 10:30 05/27/24 10:00 05/27/24 10:30
Lab Results - Hematology
05/24/24 05/25/24 05/26/24
13:31 05:47 03:20
WBC 8.1 9.3 9.7
Band Neutrophils 17 H
05/27/24
04:18
WBC 10.1
Band Neutrophils
Lab Results - Chemistry
05/24/24 05/25/24 05/26/24
13:31 05:47 03:20
BUN 43 H 35 H 35 H
Creatinine 2.2 H 1.1 0.9
Estimated Creat Clear 46 92 112
Albumin 4.2 3.2 L 3.2 L
05/27/24
04:18
BUN 33 H
Creatinine 0.9
Estimated Creat Clear 111
Albumin
05/24/24 05/24/24 05/24/24
13:31 18:26 18:29
Lactic Acid 4.7 H* Cancelled 1.1
Microbiology Results
05/24/24 14:42 Blood Culture - Preliminary
Blood/Venous Staphylococcus simulans
Gram Stain - Preliminary
05/24/24 14:42 Blood Culture - Preliminary
Blood/Venous Staphylococcus simulans
Gram Stain - Final
05/24/24 21:46 Respiratory Culture - Preliminary
Endotracheal Gram Stain - Preliminary
05/24/24 18:28 MRSA Screen - Final
Nose No Methicillin Resistant Staphylococcus aureus isolated.
05/24/24 14:42 Urine Culture - Final
Urine NO GROWTH
Therapeutic Drug Monitoring
Vancomycin Trough 10.1 ug/ml (5-20) 05/26/24 03:20
Random Vancomycin 7.8 ug/ml 05/25/24 05:47
[2024-05-27] MEDS: NICODERM TRANSDERMAL 21 MG TRANSDERM (11:31)
--- NOTE | 2024-05-27 12:00 | PTCARENOTE ---
continuing to turn and reposition patient. He did desaturate and required 60% Chute Operator notified by RT and nursing. Continuing to have copious clear secretions. may try to wean off sedation this afternoon.
[2024-05-27 12:05] LABS: Glucose - Point of Care 127 mg/dl (70-99)
[2024-05-27] MEDS: ROBITUSSIN 200 MG TUBE ×3 (13:07→23:14)
[2024-05-27] MEDS: UNASYN IV ×2 (13:40→17:17)
--- NOTE | 2024-05-27 13:45 | CM ---
M following re: discharge planning.
Discussed in Rounds, reviewed pt's chart.
Per Rounds meeting, pt intubated on the field, remains intubated, continue supportive care.
Pr lives with spouse 2SH, 2 steps to enter, has 3 stepchildren. 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
PCP: Jessica Reddy
D/C plan: uncertain at this time and will depend on pt's progress.
CM will follow with discharge plan updates as hospitalization progresses
--- NOTE | 2024-05-27 14:36 | W.PN.HOSP.TC ---
Today's Communication/Plan
-
Still intubated
Assessment / Plan
Assessment / Plan
Assessment/plan:
Acute hypoxic/hypercarbic respiratory failure secondary to pneumonia/CHF exacerbation/asthma/COPD exacerbation
Vent dependent respiratory failure
Patient intubated by EMS, admitted to the ICU
# History of asthma/COPD
# Current smoker
-ABG shows pH of 7.11, pCO2 108, pO2 of 220,
-Salicylates and Tylenol negative, alcohol negative
-Propofol for sedation
-Naloxone given
-Levophed started
-DuoNebs as needed
-Dexamethasone 4 mg every 12
-CT head negative
-Urinalysis unremarkable
05/27
wean aron support
Septic shock secondary to interstitial pneumonia
-CT abdomen pelvis shows parenchymal airspace opacity within both lower lobes suspicious for pneumonia
-Culture shows Staphylococcus stimulans-MRSA negative
-Continue vancomycin/Unasyn (MSRA screen negative)
Acute CHF Exacerbation:
Patient has acute diastolic congestive heart failure
BNP level is elevated at 6500
Troponin level is peaked at 0.394 continue to trend
Continue IV diuresing in form of Lasix 40 mg twice daily
Daily weight.
Strict I's and O's.
Most recent echo shows :
Normal left ventricular systolic function. LV ejection fraction is 60-65%.
Moderate concentric left ventricular hypertrophy.
Mildly enlarged right ventricular size. Mildly reduced right ventricular
systolic function.
No significant valve disease.
Possible carbon monoxide exposure
-Patient slept in truck overnight with truck turned on
-Carboxyhemoglobin of 3.1% however patient was a significant smoker
Acute kidney injury
both improved.
Nonischemic myocardial injury (type II IL, demand ischemia)
-Troponin 0.058
-Trend troponins
Echo shows:
Normal left ventricular systolic function. LV ejection fraction is 60-65%.
Moderate concentric left ventricular hypertrophy.
Mildly enlarged right ventricular size. Mildly reduced right ventricular
systolic function.
No significant valve disease.
Essential hypertension
-Hold lisinopril
Hypothyroidism
TSH 60.4 repeat 20
-Continue levothyroxine IV
Full code
DVT prophylaxis�heparin
N.p.o.
Anticipated Discharge: > 48 hours
Subjective/Interval History
-
Date of Service: May 27, 2024
Patient seen and examined at bedside.
at bedside.
More awake and oriented.
Still intubated.
Objective Data
-
Labs:
Laboratory Results
05/27/24 05/27/24 05/27/24
04:18 05:32 09:34
WBC 10.1
Hgb 13.1
Hct 44.8
Plt Count 258
HCO3 40.5 H* 39.8 H
Sodium 145
Potassium 4.8
Chloride 102
Carbon Dioxide 39 H
BUN 33 H
Creatinine 0.9
Glucose 149 H
Calcium 8.5
Vital Signs:
Vital Signs
Temp Pulse Resp BP Pulse Ox
97.8 F 71 17 143/80 94
05/27/24 11:36 05/27/24 14:15 05/27/24 14:15 05/27/24 14:00 05/27/24 14:15
I&O
05/26/24 05/27/24 05/28/24
06:59 06:59 06:59
Intake Total 2582.9 / 2597.9 1341.00 / 1367.10 175.3 / 175.3
Output Total 2920 / 2970 3240 / 3265 1675 / 1675
Balance -337.1 / -372.1 -1899.00 / -1897.90 -1499.7 / -149.7
Physical Exam
-
General: Well Developed and Intubated
HEENT: Normocephalic and Atraumatic
Respiratory: Wheezes, Rales and Rhonchi
Cardiac: Regular Rhythm and S1/S2
GI: Soft and Nondistended
Musculoskeletal: No Edema
Skin: Warm
Neuro: Sedated
--- NOTE | 2024-05-27 14:57 | PTCARENOTE ---
Started Jevity 1.5 trickle feeds. Complete bed linen change and CHG completed.
[2024-05-27] MEDS: LOVENOX 40 MG SC (17:18)
--- NOTE | 2024-05-27 17:43 | PTCARENOTE ---
weaned patient back to 50%. patient's and son present at bedside, sedation vacation initiated. patient was calm, was able to communicate with this RN and family. Followed all commands, denied pain. restarted propofol at half prior rate as
charted in worklist. support provided to patient and his family.
[2024-05-27] MEDS: ZITHROMAX INFUSION 250 IV (18:10)
[2024-05-27] MEDS: NOVOLOG FLEXPEN-MODERATE RESISTANCE 1 UNITS SC (18:16)
[2024-05-27 18:37] LABS: Glucose - Point of Care 157 mg/dl (70-99)
--- NOTE | 2024-05-27 20:00 | PTCARENOTE ---
Received pt via handoff. Pt intubated and sedated but oriented and nods head appropriately. Able to move all extremities but with generalized weakness. NSR to sinus rosa. Palpable pulses, +2 edema in lower extremities. 7.5 ETT 24@lip AC
16/450/50%/5, crackles, coarse and diminished throughout. [place] sump 75 Right nare, 10mL/Hr of Jevity 1.5. Temp sensing [place] draining clear yellow urine. Gtts running see flowsheet.
[2024-05-27] MEDS: PULMICORT 0.5 MG INH (20:25)
[2024-05-27] MEDS: SOLU-MEDROL PF 40 MG IV (23:15)
[2024-05-28] VITALS (26 sets, daily range): BP systolic 105–181; BP diastolic 63–117; PULSE 2–53; BMI 42.4
--- NOTE | 2024-05-28 00:04 | PTCARENOTE ---
All systems reassessed, pt hygiene performed. Pt tolerating tube feedings. Call conteh at bedside.
[2024-05-28] MEDS: UNASYN IV ×4 (00:10→17:45)
[2024-05-28] MEDS: NOVOLOG FLEXPEN-MODERATE RESISTANCE SC ×2 (00:46→17:49)
[2024-05-28 00:56] LABS: Glucose - Point of Care 117 mg/dl (70-99)
[2024-05-28 03:42] LABS: Hematocrit 45.1 % (39.0-52.0); Hemoglobin 13.4 g/dL (13.0-18.0); Mean Corp Hgb Conc. 29.7 g/dL (33.0-37.0); Mean Corpuscular Hgb 26.6 pg (27.0-31.0); Mean Corpuscular Volume 89.5 fL (80.0-94.0); Mean Platelet Volume 10.4 fL (7.4-10.4); Platelet Count 258 10^3/uL (130-400); Red Blood Cell Count 5.04 10^6/uL (4.70-6.10); Red Cell Dist. Width 16.9 % (11.5-14.5); White Blood Cell Count 9.9 10^3/uL (4.8-10.8)
--- NOTE | 2024-05-28 04:00 | PTCARENOTE ---
All systems reassessed, labs drawn, hygiene performed. Call conteh at bedside.
[2024-05-28 04:08] LABS: Blood Urea Nitrogen 32 mg/dl (9-20); Calcium 8.7 mg/dl (8.4-10.2); Carbon Dioxide 37 mmol/L (22-30); Chloride 104 mmol/L (98-107); Estimated Creatinine Clearance > 125 ml/min; Glucose 164 mg/dl (70-99); Magnesium 2.6 mg/dl (1.6-2.3); Phosphorus 3.5 mg/dl (2.5-4.5); Potassium 4.6 mmol/L (3.5-5.1); Sodium 148 mmol/L (135-145); eGFR > 60.00
[2024-05-28] MEDS: DIPRIVAN 100 IV ×2 (04:34→08:37)
[2024-05-28] MEDS: SYNTHROID 200 MCG TUBE (04:34)
[2024-05-28] MEDS: VANCOCIN 530 MG IV (04:34)
[2024-05-28] MEDS: SOLU-MEDROL PF 40 MG IV ×3 (04:35→22:48)
[2024-05-28] MEDS: NOVOLOG FLEXPEN-MODERATE RESISTANCE 1 UNITS SC ×2 (06:10→11:55)
[2024-05-28 06:20] LABS: Glucose - Point of Care 163 mg/dl (70-99)
[2024-05-28 06:30] LABS: B.E. 12.5 mmol/L; HCO3 38.9 mmol/L (21-28); O2 Saturation % 96.8 % (94-98); PCO2 56 mmHg (35-48); PO2 75 mmHg (83-108); pH 7.45 (7.35-7.45)
[2024-05-28] MEDS: ZITHROMAX 250 MG PO (07:44)
[2024-05-28] MEDS: DUONEB 3 ML INH ×4 (07:44→19:48)
[2024-05-28] MEDS: ROBITUSSIN 200 MG TUBE ×4 (07:44→22:48)
[2024-05-28] MEDS: MIRALAX 17 GRAMS TUBE (07:44)
[2024-05-28] MEDS: PULMICORT 0.5 MG INH ×2 (07:44→19:49)
[2024-05-28] MEDS: NICODERM TRANSDERMAL 21 MG TRANSDERM (07:45)
[2024-05-28] MEDS: DESENEX/MITRAZOL/ZEASORB 1 APPLIC TOPICAL ×2 (07:45→20:42)
[2024-05-28] MEDS: SUBLIMAZE 50 MCG IV (08:15)
--- NOTE | 2024-05-28 08:15 | PTCARENOTE ---
report received. aaox3. pt sedated but able to make needs known. fent and prop gtts infusing. nsr-sb. vss. Palpable pulses. 7.5 ETT 24@lip AC 16/450/40%/8. rhonchi and coarse throughout. [place] sump 75 Right nare, 10mL/Hr of Jevity 1.5. [place]
draining clear yellow urine. will monitor
--- NOTE | 2024-05-28 08:24 | W.PN.INTV ---
Today's Communication / Plan
Recommendations
Fiberline Supervisor ventilation --> SBT this morning with SAT and plan to extubate
Once extubated, nursing swallow evaluation to assure he is safe for PO medications; will need LOG HANDLER evaluation prior to starting PO diet; will need BiPAP with sleep given chronic hypercapnia
Stop tube feeds in prep for extubation
Systemic steroids with wean as he clinically improves --> tommorrow will lower soluumedrol to 40mg IV q12hr
Continue antibiotics and on 05/27 I started zithromax for atypical coverage and also for anti-inflammatory properties given his current suspected COPD flare
Follow-up cultures
Nebulized bronchodilators
Aspiration precautions
Levothyroxine; trend TFTs
Critically ill, continue ICU level of care
Assessment
-
58-year-old male with a past medical history of tobacco use disorder, hypertension, hypothyroidism and reported history of asthma who presents with altered mental status. Found to be hypoxic and intubated in the field. Brought to the ER where he
was found to have a pneumonia with upper lobe predominant emphysema. Transferred to the ICU on vasopressors for further care with distance learning technician services consulted for additional management/recommendations.
Impression:
#Acute respiratory failure with hypoxia and hypercapnia now on mechanical ventilation
#CAP involving bilateral lower lobes
#Septic shock due to above - shock state now resolved since 05/26
#Hypothermia likely due to septic shock from LLL pneumonia - hypothermia now resolved
#Centrilobular emphysema with concern for COPD with acute exacerbation
#MAGGI (unknown Cr baseline) with elevated potassium - resolved
#Lactic acidosis - resolved
#Elevated troponin - peaked at 0.394 on 05/25/2024
#Acute decompensated heart failure (mild)
#Right ventricular systolic dysfunction (seen on TTE from 05/25/2024)
#Hypothyroidism with severely elevated TSH of 60.4 with free T4 0.49
#Hyperglycemia - improved
#Transaminitis
Plan:
- Continue with mechanical ventilation with daily SAT/SBT if clinically appropriate --> placed onto an SBT this morning and plan to extubate
- Tube feeds now stopped in preparation for extubation
��������������� - Titrate FiO2 + PEEP to maintain SpO2 88-95%
��������������� - Maintain plateau pressure < 30
��������������� - DuoNebs QID given he was wheezing on exam on admission and we are treating for an AECOPD
��������������� - Decadron 6mg IV q12hr --> 4mg IV q12hr --> change steroids to solumedrol 40mg IV q8hr --> lower to 40mg q12hr tomorrow; continue to wean as he clinically improves
��������������� - Maintain euglycemia while on high-dose steroids with goal BG 140�180; use ISS
��������������� - Lightly sedated with goal RASS -1 to -2 w/daily SAT
- Consider bronchoscopy prior to extubation for pulmonary toilet purposes
- Continue mucinex
- After extubation, have nurse check bedside swallow evaluation to ensure he can take PO meds; he will need LOG HANDLER evaluation prior to starting PO diet
- Once he is extubated he will need BiPAP with sleep given his chronic hypercapnic respiratory failure in the setting of COPD; use nasal PAP mask given his secretions
- Broad spectrum Abx
��������������� - Blood cultures from 05/24 are growing Staphylococcus simulans which is sensitive to oxacillin - narrowed ABx from Zosyn to Unasyn and given that he was septic and in shock , would give 14 days of ABx from date of first negative
blood Cx
- s/p IV vanco --> now stopped
��������������� - Follow up sputum Cx (NGTD); legionella/Strep PNA urine antigens both negative
- On 05/27 I started Zithromax for atypical coverage as well as anti-inflammatory effect given suspected COPD with acute exacerbation; trend QTc
��������������� - Maintain normothermia with Sintia hugger prn
- Continue vasopressors with goal MAP>65
��������������� - Gave 40mg IV lasix x1 on AM of 05/26 + 05/27 given concern for continued interstitial edema on CXR (received IV lasix 40mg on 05/26 as well)
- proBNP is 130 today on 05/27
��������������� - 2D-echo done on 05/25/2024 showed preserved LVEF at 60-85% with moderate concentric LVH, and mildly enlarged RV with mildly reduced RV systolic function
��������������� - Consider cardiology consult
- Started IV levothyroxine with 150mcg daily on 05/24 --> changed IV LT4 to PO on 05/25; repeat TSH from 05/26 shows it is improving; c/t trend with repeat in another 24-48 hrs to assess for improvement
- No longer need to trend troponin given it peaked at 0.394 this morning
- No longer need to trend lactate given it is now <2mmol/L
- Trend LFTs
- Trend sCr and BUN; renally dose all meds/Abx; monitor I/O and UOP
- Stress ulcer ppx: N/A
- Started tube feeds at trickle rate on 05/27 --> tube feeds now stopped given patient is being prepared for extubation; once extubated, he will need LOG HANDLER evaluation prior to starting diet
- DVT ppx: LMWH
Continue with ICU level care for this critically ill patient.
Critical care statement: A total of 38 minutes of critical care time was provided for this patient today. This includes management of unstable vital signs, evaluation of the patient at bedside, reviewing the patient's pertinent medical records
including radiographs, microbiology, laboratory evaluations, and discussion with primary team, consultants, pharmacy, nutrition, physical therapy, case management, charge nurse, critical care nursing, and respiratory therapy.
Data:
Transthoracic echocardiogram 05/25/2024:
Normal left ventricular systolic function. LV ejection fraction is 60-65%.
Moderate concentric left ventricular hypertrophy.
Mildly enlarged right ventricular size. Mildly reduced right ventricular
systolic function.
No significant valve disease.
CTA chest/CT abdomen/pelvis with contrast 05/24/2024:
Examination is negative for pulmonary embolism.
Parenchymal airspace opacity within both lower lobes, left greater than right, with findings suspicious for pneumonia. Atelectasis could have a similar appearance.
Changes of emphysema within both lungs, mainly within the upper lungs.
Mild diffuse increased interstitial markings, which could represent interstitial pneumonitis and/or interstitial edema.
Endotracheal tube with tip 3.2 cm above the swati.
Nasogastric tube with tip in the mid to distal esophagus. This tube should be repositioned.
No evidence for bowel obstruction. No evidence for free intraperitoneal air.
CXR 05/26/2024:
Interval development of mild opacity at the left lung base, atelectasis versus pneumonia. No significant change in generalized prominence of bronchovascular markings. A nasogastric tube extends into the stomach.
CXR 05/27/2024:
Endotracheal tube is present with tip in good position mid trachea. Nasogastric tube, tip extending off the inferolateral the radiograph.
Parenchymal opacity within the left lower lung, appears slightly increased from most recent radiograph. This most likely represents pneumonia, although there could also be a component of atelectasis.
Increased interstitial markings within the right lower lung and the left midlung, suspicious for interstitial component of pneumonitis and/or bronchitis/bronchiolitis.
CXR 05/28/2024: Improved left basilar opacity likely representing resolving subsegmental atelectasis and/or pneumonia.
Subjective Dataa
Subjective Data
Date of Service:
Date of Service: May 28, 2024
Chief Complaint: Medical Lab Technician Follow Up
Subjective:
Patient seen and evaluated today at bedside. This morning he was sedated on propofol at 20mcg/kg/min + fentanyl 75mcg/hr. These were weaned off and he was placed onto an SBT on 10/27 at 50% FiO2. He was saturating 93% with PIP: 16 cmH2O, VTe 514mL
and breathing at 15 breaths/min. Still has thick/knutson secretions but it is slightly better than yesterday. Heart rate 71, BP 141/80 and he is breathing at 16 breaths/min. He is awake, alert, following all commands, able to lift head off the pillow
and he is eager to have the tube taken out of his throat. Patient's at bedside and I answered all of her questions.
Review of Systems
General: Other (Unable to obtain as patient is intubated)
Objective Data
Data Reviewed
Vital Signs / I&O / Oxygen:
Vital Signs
Temp Pulse Resp BP Pulse Ox
98.2 F 53 16 109/67 90
05/28/24 07:30 05/28/24 07:51 05/28/24 07:51 05/28/24 06:00 05/28/24 08:00
Intake and Output
05/27/24 05/28/24 05/29/24
06:59 06:59 06:59
Intake Total 1341.00 / 1367.10 2736.2 / 2762.3 63.3 / 63.3
Output Total 3240 / 3265 2685 / 2735 100 / 100
Balance -1899.00 / -1897.90 51.2 / 27.3 -36.7 / -36.7
SaO2 [A/C] 90
SaO2 92
Physical Exam
General: Respiratory Distress (negative), Chills (negative) and Sweats (negative)
HEENT: Normocephalic, Anicteric and Other (ETT in place)
Cardiovascular: S1-S2 and Peripheral Edema (negative)
Respiratory: Wheeze (negative), Crackles (Bilateral), Rhonchi (Bilateral), Non-Labored Respirations and ET Tube (Mechanical breath sounds heard bilaterally)
GI: Soft, Distended (Abdominal obesity), Non Tender and Normal Bowel Sounds
Neurology: Awake (During SBT and does become lethargic at times), Alert, Tremors (negative) and Other (pupils 3 mm bilaterally and sluggish; following all commands)
Skin: Warm, Dry, Cyanosis (negative) and Jaundice (negative)
Labs/Micro/Reports
Lab Data
05/28/24 03:28
05/28/24 03:28
Laboratory Results
12/06/24 12/07/24
09:34 06:20
pH 7.31 L 7.45
pCO2 79 H* 56 H
pO2 60 L 75 L
HCO3 39.8 H 38.9 H
O2 Delivery Level 60%, peep:8
Microbiology
05/24/24 21:46 Endotracheal Respiratory Culture - Preliminary
05/24/24 21:46 Endotracheal Gram Stain - Preliminary
05/26/24 13:29 Blood/Venous Blood Culture - Preliminary
No Growth in 24 hours- Final report to follow
05/24/24 14:42 Blood/Venous Blood Culture - Preliminary
Staphylococcus simulans
05/24/24 14:42 Blood/Venous Gram Stain - Preliminary
05/24/24 14:42 Blood/Venous Blood Culture - Preliminary
Staphylococcus simulans
05/24/24 14:42 Blood/Venous Gram Stain - Final
05/24/24 18:28 Nose MRSA Screen - Final
No Methicillin Resistant Staphylococcus aureus isolated.
05/24/24 14:42 Urine Urine Culture - Final
NO GROWTH
--- NOTE | 2024-05-28 08:40 | PHA.VAN.FU ---
Vancomycin Assessment / Plan
- Assessment
Renal Function: SCR Decreasing
WBC's are: Stable
In the past 24 hrs, patient has been: Afebrile
Concomitant Antimicrobials: Azithromycin, Ampicillin-sulbactam
- Dosing Plan
Continue: Vanc 1500mg IV [id number]--bdhz dose 05/28 1800.
- Follow Up
Pharmacy will continue to follow.
Vancomycin Follow UP
- -
Patient Age: 58
Patient Sex: Male
Vancomycin Day #: 5
Indication: Pulmonary/Respiratory
Requesting Provider: Dr. Raman
Pertinent Antimicrobial Allergies:
NKDA
Height / Weight:
Height 5 ft 7 in
Actual Weight 122.6 kg
Pertinent Past Medical History: BMI 42
- Vital Signs / Lab Results
Temp Pulse Resp BP Pulse Ox
98.2 F 53 16 109/67 92
05/28/24 07:30 05/28/24 07:51 05/28/24 07:51 05/28/24 06:00 05/28/24 07:52
Lab Results - Hematology
05/26/24 05/27/24 05/28/24
03:20 04:18 03:28
WBC 9.7 10.1 9.9
Lab Results - Chemistry
05/26/24 05/27/24 05/28/24
03:20 04:18 03:28
BUN 35 H 33 H 32 H
Creatinine 0.9 0.9 0.7
Estimated Creat Clear 112 111 > 125
Albumin 3.2 L
Microbiology Results
05/24/24 21:46 Respiratory Culture - Preliminary
Endotracheal Gram Stain - Preliminary
05/26/24 13:29 Blood Culture - Preliminary
Blood/Venous No Growth in 24 hours- Final report to follow
05/24/24 14:42 Blood Culture - Preliminary
Blood/Venous Staphylococcus simulans
Gram Stain - Preliminary
05/24/24 14:42 Blood Culture - Preliminary
Blood/Venous Staphylococcus simulans
Gram Stain - Final
05/24/24 18:28 MRSA Screen - Final
Nose No Methicillin Resistant Staphylococcus aureus isolated.
Therapeutic Drug Monitoring
Vancomycin Trough 10.1 ug/ml (5-20) 05/26/24 03:20
Random Vancomycin 7.8 ug/ml 05/25/24 05:47
--- NOTE | 2024-05-28 09:07 | W.PN.HOSP.TC ---
Today's Communication/Plan
-
renew drips
stop vanco
increase free water flush
extubate per siebel administrator
Assessment / Plan
Assessment / Plan
pt is a 58 year old male
Acute hypoxic/hypercarbic respiratory failure secondary to pneumonia/CHF exacerbation/asthma/COPD exacerbation with Vent dependent respiratory failure--apprec siebel administrator--wean vent as able--needs to quit smoking--off levophed--on methylprednisolone
40 mg IV Q8H, wean as able
Septic shock secondary to interstitial pneumonia--CT abdomen pelvis shows parenchymal airspace opacity within both lower lobes suspicious for pneumonia--blood culture positive for Staph stimulans--repeat negative--MRSA screen neg--would stop
vanco--remains on unasun and zithromax--covid/flu both negative--follow CXR--extubate per siebel administrator
Acute diastolic CHF Exacerbation (HFpEF)--BNP elevated on admission--now down to 160--also has nonischemic myocardial injury troponin elevation--peaked at 0.394, trending down--ECHO with EF 60-65%--appears to be off diuretics--cont daily weights,
I/Os--consideration for cardiac followup
Possible carbon monoxide exposure--Patient slept in truck overnight with truck turned on--Carboxyhemoglobin of 3.1% however patient was a significant smoker--do not feel that is high enough to be concerning
Acute kidney injury--creat 2.2 on admission, now at baseline
hypernatremia--sodium 148--will increase free water flush from 25 to 50mls/hr
Essential hypertension--Hold lisinopril
nutrition--on tube feeds
Hypothyroidism--TSH 60.4 repeat 20---Continue levothyroxine IV--unclear what med dose he is on at home as med rec not performed
code status --Full code
DVT prophylaxis�heparin
Total Critical Care Time 30 minutes. I was immediately available to the patient and staff. I personally examined, reviewed labs, diagnostic images/reports, interpretations, treatment plans, discussed patient care with other providers and family
or caregivers (if patient is unable to make decisions), entered orders as appropriate and documented the medical record.
Anticipated Discharge: > 48 hours
Subjective/Interval History
-
Date of Service: May 28, 2024
pt intubated and sedated
Objective Data
-
Labs:
Laboratory Results
05/28/24 05/28/24
03:28 06:20
WBC 9.9
Hgb 13.4
Hct 45.1
Plt Count 258
HCO3 38.9 H
Sodium 148 H
Potassium 4.6
Chloride 104
Carbon Dioxide 37 H
BUN 32 H
Creatinine 0.7
Glucose 164 H
Calcium 8.7
Vital Signs:
max temp for 24 hours
05/28/24
04:26
Temp 98.6 F
Vital Signs
Temp Pulse Resp BP Pulse Ox
98.2 F 53 16 109/67 92
05/28/24 07:30 05/28/24 07:51 05/28/24 07:51 05/28/24 06:00 05/28/24 07:52
I&O
05/27/24 05/28/24 05/29/24
06:59 06:59 06:59
Intake Total 1341.00 / 1367.10 2736.2 / 2736.2
Output Total 3240 / 3265 2685 / 2685
Balance -1899.00 / -1897.90 51.2 / 51.2
Review of Systems
-
Unable to obtain full review of systems at this time due to: Patient Intubation
Physical Exam
-
General: Well Developed, Well Nourished, No Apparent Distress and Intubated (secretions noted per nursing)
HEENT: Normocephalic, Atraumatic and Other (small bore feeding tube)
Respiratory: Clear to Auscultation; Negative Wheezes, Rales, Rhonchi or Crackles
Cardiac: Regular Rhythm and S1/S2; Negative Murmur
GI: Soft, Nontender, Nondistended and Normal Bowel Sounds
Musculoskeletal: No Clubbing, No Cyanosis and No Edema
Neuro: Sedated
Psych: Calm
[2024-05-28 10:39] LABS: Glycohemoglobin (HgbA1c) 6.9 % (4.0-5.6)
[2024-05-28] MEDS: SUBLIMAZE 100 IV (11:54)
[2024-05-28 11:59] LABS: Glucose - Point of Care 169 mg/dl (70-99)
--- NOTE | 2024-05-28 12:30 | PTCARENOTE ---
all sedation turned off. weaning vent. (see worklist). photography assistant at bedside.
[2024-05-28 12:47] LABS: B.E. 12.9 mmol/L; O2 Saturation % 95.4 % (94-98); PCO2 68 mmHg (35-48); PO2 67 mmHg (83-108); pH 7.39 (7.35-7.45)
[2024-05-28 12:50] LABS: HCO3 41.2 mmol/L (21-28)
--- NOTE | 2024-05-28 13:30 | PTCARENOTE ---
pt extubated. ng tube removed. passed swollow screen.
[2024-05-28] MEDS: TYLENOL 650 MG PO (15:40)
[2024-05-28] MEDS: LOVENOX 40 MG SC (17:45)
--- NOTE | 2024-05-28 19:43 | PTCARENOTE ---
Received pt via handoff. Pt AAOx3, able to CASTILLO w/ generalized weakness. NSR with palpable pulses and afebrile. 94% on RA, coarse throughout on 6L NC. Hypoactive bowel sounds. [place] CDI draining regan urine. Ax gtts running see flowsheet. Call conteh
at bedside.
[2024-05-28] MEDS: ZOFRAN 4 MG IV (20:17)
[2024-05-29] VITALS (22 sets, daily range): BP systolic 113–159; BP diastolic 73–101; PULSE 2–64; O2SAT 89–96; BMI 42.1
[2024-05-29] MEDS: UNASYN IV ×5 (00:41→23:15)
[2024-05-29] MEDS: NOVOLOG FLEXPEN-MODERATE RESISTANCE SC ×4 (00:41→16:47)
[2024-05-29 00:52] LABS: Glucose - Point of Care 144 mg/dl (70-99)
--- NOTE | 2024-05-29 02:11 | PTCARENOTE ---
All systems reassessed. Pt's status remains unchanged, Bipap place on 5L. Ax gtts running see flowsheet. Call conteh at bedside.
[2024-05-29 05:16] LABS: Venous Blood Gas HCO3 43.6 mmol/L (22-27); Venous Blood Gas O2 Sat % 99.7 %; Venous Blood Gas pH 7.35 (7.32-7.43); Venous Blood Gas pO2 128 mmHg (30-50)
[2024-05-29] MEDS: TYLENOL 650 MG PO ×2 (05:25→20:30)
[2024-05-29] MEDS: SYNTHROID 200 MCG TUBE (05:25)
[2024-05-29 05:31] LABS: Hematocrit 46.6 % (39.0-52.0); Hemoglobin 13.7 g/dL (13.0-18.0); Mean Corp Hgb Conc. 29.4 g/dL (33.0-37.0); Mean Corpuscular Hgb 27.1 pg (27.0-31.0); Mean Corpuscular Volume 92.1 fL (80.0-94.0); Mean Platelet Volume 10.8 fL (7.4-10.4); Platelet Count 217 10^3/uL (130-400); Red Blood Cell Count 5.06 10^6/uL (4.70-6.10); Red Cell Dist. Width 16.6 % (11.5-14.5); White Blood Cell Count 10.2 10^3/uL (4.8-10.8)
[2024-05-29 05:37] LABS: Venous Blood Gas pCO2 79 mmHg (35-48)
[2024-05-29 05:42] LABS: Glucose - Point of Care 100 mg/dl (70-99)
[2024-05-29 05:43] LABS: Blood Urea Nitrogen 31 mg/dl (9-20); Calcium 8.8 mg/dl (8.4-10.2); Chloride 104 mmol/L (98-107); Estimated Creatinine Clearance > 125 ml/min; Glucose 119 mg/dl (70-99); Magnesium 2.6 mg/dl (1.6-2.3); Phosphorus 4.2 mg/dl (2.5-4.5); Potassium 4.6 mmol/L (3.5-5.1); Sodium 147 mmol/L (135-145); eGFR > 60.00
[2024-05-29 05:53] LABS: Carbon Dioxide 36 mmol/L (22-30)
[2024-05-29] MEDS: PULMICORT 0.5 MG INH ×2 (07:44→19:51)
[2024-05-29] MEDS: DUONEB 3 ML INH ×4 (07:44→19:51)
--- NOTE | 2024-05-29 08:20 | W.PN.INTV ---
Today's Communication / Plan
Recommendations
Extubated on 05/28 to nasal cannula and he has been doing well, bringing up his secretions without any issue and denies shortness of breath
Systemic steroids with wean as he clinically improves --> lower solumedrol to 40mg IV q12hr
Abx
Follow-up cultures
Nebulized bronchodilators
Aspiration precautions
Levothyroxine; trend TFTs
Outpatient office follow-up with repeat imaging, full PFTs and symptom management of suspected COPD
Patient is stable for downgrade out of ICU to telemetry. Pulmonary service will continue to briefly follow along.
Assessment
-
58-year-old male with a past medical history of tobacco use disorder, hypertension, hypothyroidism and reported history of asthma who presents with altered mental status. Found to be hypoxic and intubated in the field. Brought to the ER where he
was found to have a pneumonia with upper lobe predominant emphysema. Transferred to the ICU on vasopressors for further care with work from home services consulted for additional management/recommendations.
Impression:
#Acute respiratory failure with hypoxia and hypercapnia requiring mechanical ventilation (intubated 05/24 in the field --> extubated 05/28)
#CAP involving bilateral lower lobes
#Septic shock due to above - shock state now resolved since 05/26
#Hypothermia likely due to septic shock from LLL pneumonia - hypothermia now resolved
#Centrilobular emphysema with concern for COPD with acute exacerbation
#MAGGI (unknown Cr baseline) with elevated potassium - resolved
#Lactic acidosis - resolved
#Elevated troponin - peaked at 0.394 on 05/25/2024
#Acute decompensated heart failure (mild)
#Right ventricular systolic dysfunction (seen on TTE from 05/25/2024)
#Hypothyroidism with severely elevated TSH of 60.4 with free T4 0.49
#Hyperglycemia - improved
#Transaminitis
Plan:
- Patient was extubated on 05/28/2024, and has been doing well since that time. Currently on 6 L/min nasal cannula and breathing comfortably
- Given suspicion for COPD, maintain SpO2 88-95%
- DuoNebs QID given he was wheezing on exam on admission and we are treating for an AECOPD
- Decadron 6mg IV q12hr --> 4mg IV q12hr --> changed steroids to solumedrol 40mg IV q8hr --> lower to 40mg q12hr today; continue to wean as he clinically improves
- Maintain euglycemia while on high-dose steroids with goal BG 140�180; use ISS
- Continue mucinex
- Patient evaluated by [employer] and they cleared him for pur�ed diet with thin liquids; continue with aspiration precautions
- Continue BiPAP with sleep given his chronic hypercapnic respiratory failure in the setting of COPD; use nasal PAP mask given his secretions
- He says that the pressure on the mask was very high, so tonight I will change him to 05/26 from 15/8cmH2O
- Continue Abx
��������������� - Blood cultures from 05/24 are growing Staphylococcus simulans which is sensitive to oxacillin - on 05/27 Dr. Leonard narrowed ABx from Zosyn to Unasyn and given that he was septic and in shock, would give 14 days of ABx from date of
first negative blood Cx
- s/p IV vanco --> now stopped
��������������� - Follow up sputum Cx (NGTD); legionella/Strep PNA urine antigens both negative
- On 05/27 Dr. Leonard started Zithromax for atypical coverage as well as anti-inflammatory effect given suspected COPD with acute exacerbation; trend QTc
- Continue vasopressors with goal MAP>65
��������������� - Gave 40mg IV lasix x1 on AM of 05/26 + 05/27 given concern for continued interstitial edema on CXR (received IV lasix 40mg on 05/26 as well) --> continue to monitor volume status
- proBNP was 130 on 05/27
��������������� - 2D-echo done on 05/25/2024 showed preserved LVEF at 60-85% with moderate concentric LVH, and mildly enlarged RV with mildly reduced RV systolic function
��������������� - Consider cardiology consult
- Started IV levothyroxine with 150mcg daily on 05/24 --> changed IV LT4 to PO on 05/25; repeat TSH from 05/26 shows it is improving; c/t trend with repeat in another 24-48 hrs to assess for improvement
- No longer need to trend troponin given it peaked at 0.394 this morning
- No longer need to trend lactate given it is now <2mmol/L
- Trend LFTs
- Trend sCr and BUN; renally dose all meds/Abx; monitor I/O and UOP
- Stress ulcer ppx: N/A
- DVT ppx: LMWH
Patient is stable for downgrade out of ICU to telemetry. Pulmonary service will continue to briefly follow along.
Data:
Transthoracic echocardiogram 05/25/2024:
Normal left ventricular systolic function. LV ejection fraction is 60-65%.
Moderate concentric left ventricular hypertrophy.
Mildly enlarged right ventricular size. Mildly reduced right ventricular
systolic function.
No significant valve disease.
CTA chest/CT abdomen/pelvis with contrast 05/24/2024:
Examination is negative for pulmonary embolism.
Parenchymal airspace opacity within both lower lobes, left greater than right, with findings suspicious for pneumonia. Atelectasis could have a similar appearance.
Changes of emphysema within both lungs, mainly within the upper lungs.
Mild diffuse increased interstitial markings, which could represent interstitial pneumonitis and/or interstitial edema.
Endotracheal tube with tip 3.2 cm above the swati.
Nasogastric tube with tip in the mid to distal esophagus. This tube should be repositioned.
No evidence for bowel obstruction. No evidence for free intraperitoneal air.
CXR 05/26/2024:
Interval development of mild opacity at the left lung base, atelectasis versus pneumonia. No significant change in generalized prominence of bronchovascular markings. A nasogastric tube extends into the stomach.
CXR 05/27/2024:
Endotracheal tube is present with tip in good position mid trachea. Nasogastric tube, tip extending off the inferolateral the radiograph.
Parenchymal opacity within the left lower lung, appears slightly increased from most recent radiograph. This most likely represents pneumonia, although there could also be a component of atelectasis.
Increased interstitial markings within the right lower lung and the left midlung, suspicious for interstitial component of pneumonitis and/or bronchitis/bronchiolitis.
CXR 05/28/2024: Improved left basilar opacity likely representing resolving subsegmental atelectasis and/or pneumonia.
Total time spent today was 61 minutes for this encounter. Time includes reviewing laboratory test/imaging results, reviewing pertinent medical records, obtaining and reviewing medical history, performing an appropriate exam, ordering medications,
tests and procedures. Time also includes documentation of this encounter, coordinating patient care and communicating with other healthcare professionals. Total time does not include separately billed tests performed on this date of service.
Subjective Dataa
Subjective Data
Date of Service:
Date of Service: May 29, 2024
Chief Complaint: [employer] Follow Up
Subjective:
Patient was seen and evaluated today at bedside. He feels well, heart rate 48 and currently on 6 L/min saturating 92%. Wore BiPAP overnight on 03/02 blood with 6 L/min. Fullface mask was used as he is a mouth breather. He was afebrile overnight.
He denies chest pain, GALINDO, abdominal pain, nausea, fevers or chills. Still has a cough but is bringing up his phlegm just fine.
Review of Systems
General: Other (Negative unless mentioned above)
Objective Data
Data Reviewed
Vital Signs / I&O / Oxygen:
Vital Signs
Temp Pulse Resp BP Pulse Ox
97.9 F 50 17 144/80 95
05/29/24 07:33 05/29/24 07:46 05/29/24 07:46 05/29/24 05:18 05/29/24 07:46
Intake and Output
05/28/24 05/29/24 05/30/24
06:59 06:59 06:59
Intake Total 2736.2 / 2762.3 2210.5 / 2210.5
Output Total 2685 / 2735 1260 / 1260
Balance 51.2 / 27.3 950.5 / 950.5
SaO2 [A/C] 90
SaO2 95
Nasal Cannula flow liters per 6
minute
Physical Exam
General: Respiratory Distress (negative), Chills (negative) and Sweats (negative)
HEENT: Normocephalic and Anicteric
Cardiovascular: S1-S2 and Peripheral Edema (negative)
Respiratory: Wheeze (negative), Crackles (Bilateral), Rhonchi (Bilateral) and Non-Labored Respirations
GI: Soft, Distended (Abdominal obesity), Non Tender and Normal Bowel Sounds
Neurology: AO x 3 and Tremors (negative)
Skin: Warm, Dry, Cyanosis (negative) and Jaundice (negative)
Labs/Micro/Reports
Lab Data
05/29/24 05:02
05/29/24 05:02
Laboratory Results
05/28/24
12:37
pH 7.39
pCO2 68 H
pO2 67 L
HCO3 41.2 H*
O2 Delivery Level Not Reportable
Microbiology
05/26/24 13:29 Blood/Venous Blood Culture - Preliminary
No Growth in 48 hours- Final report to follow
05/24/24 21:46 Endotracheal Respiratory Culture - Preliminary
05/24/24 21:46 Endotracheal Gram Stain - Preliminary
05/24/24 14:42 Blood/Venous Blood Culture - Final
Staphylococcus simulans
05/24/24 14:42 Blood/Venous Gram Stain - Final
05/24/24 14:42 Blood/Venous Blood Culture - Preliminary
Staphylococcus simulans
05/24/24 14:42 Blood/Venous Gram Stain - Preliminary
05/24/24 18:28 Nose MRSA Screen - Final
No Methicillin Resistant Staphylococcus aureus isolated.
--- NOTE | 2024-05-29 08:31 | W.PN.HOSP.TC ---
Today's Communication/Plan
-
transfer to tele
PT/OT/speech--advance diet as tolerated
cont unasyn and zithromax
Assessment / Plan
Assessment / Plan
pt is a 58 year old male
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
methylprednisolone 40 mg IV Q12H, wean as able
Septic shock secondary to interstitial pneumonia--CT abdomen pelvis shows parenchymal airspace opacity within both lower lobes suspicious for pneumonia--blood culture positive for Staph stimulans--repeat negative--MRSA screen neg--would stop
vanco--remains on unasyn and zithromax--covid/flu both negative--follow CXR
Acute diastolic CHF Exacerbation (HFpEF)--BNP elevated on admission--now down to 160--also has nonischemic myocardial injury troponin elevation--peaked at 0.394, trending down--ECHO with EF 60-65%--appears to be off diuretics--cont daily weights,
I/Os--consideration for cardiac followup
Possible carbon monoxide exposure--Patient slept in truck overnight with truck turned on--Carboxyhemoglobin of 3.1% however patient was a significant smoker--do not feel that is high enough to be concerning
Acute kidney injury--creat 2.2 on admission, now at baseline (o.7)
hypernatremia--sodium 147--likely from overdiuresis--encourage fluid intake
Essential hypertension--restart lisinopril
nutrition--advance diet as per speech
Hypothyroidism--TSH 60.4 repeat 20---Continue synthroid
code status --Full code
DVT prophylaxis�heparin
Ok for transfer to tele
Anticipated Discharge: 24 - 48 hours
Subjective/Interval History
-
Date of Service: May 29, 2024
pt extubated--doing OK--speech to see--advance diet as per speech
Objective Data
-
Labs:
Laboratory Results
05/29/24
05:02
WBC 10.2
Hgb 13.7
Hct 46.6
Plt Count 217
Sodium 147 H
Potassium 4.6
Chloride 104
Carbon Dioxide 36 H
BUN 31 H
Creatinine 0.7
Glucose 119 H
Calcium 8.8
Vital Signs:
max temp for 24 hours
05/29/24
02:11
Temp 98.6 F
Vital Signs
Temp Pulse Resp BP Pulse Ox
97.9 F 50 17 144/80 95
05/29/24 07:33 05/29/24 07:46 05/29/24 07:46 05/29/24 05:18 05/29/24 07:46
I&O
05/28/24 05/29/24 05/30/24
06:59 06:59 06:59
Intake Total 2736.2 / 2762.3 2210.5 / 2210.5
Output Total 2685 / 2735 1260 / 1260
Balance 51.2 / 27.3 950.5 / 950.5
Review of Systems
-
All other systems: Reviewed and negative
Physical Exam
-
General: Well Developed, Well Nourished and No Apparent Distress
HEENT: Normocephalic, Atraumatic and Other (getting breathing treatment)
Respiratory: Rhonchi (raspy breath sounds bilaterally)
Cardiac: Regular Rhythm and S1/S2; Negative Murmur
GI: Soft, Nontender, Nondistended and Normal Bowel Sounds
Genito-urinary: [place]
Musculoskeletal: No Clubbing, No Cyanosis and No Edema
Skin: Warm
Neuro: Awake and Alert
Psych: Calm
[2024-05-29] MEDS: SOLU-MEDROL PF 40 MG IV ×2 (08:34→20:37)
[2024-05-29] MEDS: DESENEX/MITRAZOL/ZEASORB 1 APPLIC TOPICAL ×2 (08:34→20:37)
[2024-05-29] MEDS: NICODERM TRANSDERMAL 21 MG TRANSDERM (08:35)
[2024-05-29] MEDS: ZITHROMAX 250 MG PO (08:35)
[2024-05-29] MEDS: ZOFRAN 4 MG IV (08:45)
--- NOTE | 2024-05-29 09:41 | PTOTSP ---
Speech Therapy Evaluation:
Pt exhibits clinical signs of oropharyngeal dysphagia, likely related to history of asthma (and potential undiagnosed COPD per MD), compounded by acute hypoxic respiratory failure 2/2 PNA, CHF exacerbation, asthma/COPD. Pt remains at an increased
risk of aspiration given recent intubation (05/24-05/28) and increased oxygen requirement (6L). CXR with resolving PNA/atelectasis. Pt with no overt s/sx of aspiration across PO trials. RR and SpO2 remained stable.
Recommend:
1. Initiate CAUTIOUS IDDSI Level 4 (puree) and thin liquid diet
2. Medications as tolerated
3. Strict aspiration precautions
4. d/c oral diet if change in respiratory status, worsening CXR, or pt with s/sx of aspiration
5. ST to follow to monitor tolerance of current diet, assess candidacy for diet upgrade, and determine if VSE warranted.
[2024-05-29] MEDS: MIRALAX TUBE (09:58)
[2024-05-29] MEDS: ROBITUSSIN TUBE (09:59)
--- NOTE | 2024-05-29 10:11 | PTCARENOTE ---
pt aaox3. pt states no pain and is sleepy. nausea zofran given. pt at bedside. reviewed pt condition and plan of care. breath sounds diminished thru out. nc6l. o2 sat 97% when awake 91 when asleep. santo in place care done.
[2024-05-29 12:27] LABS: Glucose - Point of Care 146 mg/dl (70-99)
[2024-05-29] MEDS: ROBITUSSIN 200 MG PO ×3 (12:31→21:08)
[2024-05-29 16:55] LABS: Glucose - Point of Care 121 mg/dl (70-99)
[2024-05-29] MEDS: LOVENOX 40 MG SC (18:22)
--- NOTE | 2024-05-29 20:30 | PTCARENOTE ---
Received patient AAOx3, following commands, c/o headache, tylenol given. Sinus rosa, 50s. BP stable, normothermic. +2 generalized anasarca, palpable radial and pedal pulses b/l. On 8 liters nasal cannula saturating 94%, lung sounds diminished
throughout. Abdomen soft, round, obese, positive bowel sounds. No BM, voiding in urinal. PIVs patent, WNL. Call conteh within reach.
[2024-05-29 23:26] LABS: Glucose - Point of Care 114 mg/dl (70-99)
[2024-05-30] VITALS (8 sets, daily range): BP systolic 115–166; BP diastolic 70–148; BMI 41.5
[2024-05-30] MEDS: UNASYN IV ×3 (05:24→18:16)
[2024-05-30] MEDS: SYNTHROID 200 MCG PO (05:25)
[2024-05-30] MEDS: DUONEB 3 ML INH ×4 (07:22→19:19)
[2024-05-30] MEDS: PULMICORT 0.5 MG INH ×2 (07:23→19:19)
[2024-05-30 08:16] LABS: Glucose - Point of Care 118 mg/dl (70-99)
[2024-05-30] MEDS: NOVOLOG FLEXPEN-MODERATE RESISTANCE SC ×2 (08:28→12:53)
[2024-05-30] MEDS: ROBITUSSIN 200 MG PO ×4 (08:50→22:42)
[2024-05-30] MEDS: DESENEX/MITRAZOL/ZEASORB 1 APPLIC TOPICAL ×2 (08:50→19:45)
[2024-05-30] MEDS: NICODERM TRANSDERMAL 21 MG TRANSDERM (08:51)
[2024-05-30] MEDS: ZITHROMAX 250 MG PO (08:51)
[2024-05-30] MEDS: MIRALAX 17 GRAMS PO (08:51)
[2024-05-30] MEDS: SOLU-MEDROL PF 40 MG IV (08:53)
--- NOTE | 2024-05-30 11:58 | W.PN.PUL3 ---
Today's Communication / Plan
-
Transition to prednisone 40 mg with a slow taper
Discontinue IV Solu-Medrol
Continue DuoNebs while in the hospital
Restart inhalers upon discharge
Home oxygen assessment tomorrow morning
Continue antibiotics: Complete 5 days of Zithromax. May transition to Augmentin upon discharge, total of 14 days of antibiotics given bacteremia.
Continue BiPAP while in the hospital. This will need to be readdressed in the outpatient setting
From the pulmonary perspective hopefully can be discharged in the next 24 to 48 hours if improved
Will follow
Assessment
-
58-year-old male with a past medical history of tobacco use disorder, hypertension, hypothyroidism and reported history of asthma who presents with altered mental status. Found to be hypoxic and intubated in the field. Brought to the ER where he
was found to have a pneumonia with upper lobe predominant emphysema. Transferred to the ICU on vasopressors for further care with savings counselor services consulted for additional management/recommendations.
Impression:
#Acute respiratory failure with hypoxia and hypercapnia requiring mechanical ventilation (intubated 05/24 in the field --> extubated 05/28)
#CAP involving bilateral lower lobes
#Septic shock due to above - shock state now resolved since 05/26
#Hypothermia likely due to septic shock from LLL pneumonia - hypothermia now resolved
#Centrilobular emphysema with concern for COPD with acute exacerbation
#MAGGI (unknown Cr baseline) with elevated potassium - resolved
#Lactic acidosis - resolved
#Elevated troponin - peaked at 0.394 on 05/25/2024
#Acute decompensated heart failure (mild)
#Right ventricular systolic dysfunction (seen on TTE from 05/25/2024)
#Hypothyroidism with severely elevated TSH of 60.4 with free T4 0.49
#Hyperglycemia - improved
#Transaminitis
Plan:
- Patient was extubated on 05/28/2024, and has been doing well since that time.
- Oxygen supplementation improved down to 3 L. Home oxygen assessment later today. Hopefully can be weaned off.
-
Bronchospasm improved.
While in the hospital continue nebulized therapy-DuoNeb.
- DuoNebs QID given he was wheezing on exam on admission and we are treating for an AECOPD
-Transition to prednisone 40 mg today 05/30/2024. Decrease by 10 mg every 72 hours to off.
- Maintain euglycemia while on high-dose steroids with goal BG 140�180; use ISS
- Continue mucinex
-Advance diet as tolerated. Aspiration precautions.
- Continue BiPAP with sleep given his chronic hypercapnic respiratory failure in the setting of COPD/hypercapnic obesity hypoventilation syndrome; use nasal PAP mask given his secretions-will need outpatient pulmonary follow-up to address this in
the outpatient setting. Continue current pressure of 12/5 cm of water
- Continue Abx
��������������� - Blood cultures from 05/24 are growing Staphylococcus simulans which is sensitive to oxacillin - on 05/27 Dr. Leonard narrowed ABx from Zosyn to Unasyn and given that he was septic and in shock, would give 14 days of ABx from date of
first negative blood Cx, may transition to Augmentin upon discharge.
- s/p IV vanco --> now stopped
��������������� -Sputum culture with normal respiratory nasreen.; legionella/Strep PNA urine antigens both negative
- On 05/27 Dr. Leonard started Zithromax for atypical coverage as well as anti-inflammatory effect given suspected COPD with acute exacerbation; trend QTc-complete 5 days.
-Hemodynamically stable not requiring vasopressors.
- proBNP was 130 on 05/27
��������������� - 2D-echo done on 05/25/2024 showed preserved LVEF at 60-85% with moderate concentric LVH, and mildly enlarged RV with mildly reduced RV systolic function
�
- DVT ppx: LMWH
Pulmonary will continue to follow.
Data:
Transthoracic echocardiogram 05/25/2024:
Normal left ventricular systolic function. LV ejection fraction is 60-65%.
Moderate concentric left ventricular hypertrophy.
Mildly enlarged right ventricular size. Mildly reduced right ventricular
systolic function.
No significant valve disease.
CTA chest/CT abdomen/pelvis with contrast 05/24/2024:
Examination is negative for pulmonary embolism.
Parenchymal airspace opacity within both lower lobes, left greater than right, with findings suspicious for pneumonia. Atelectasis could have a similar appearance.
Changes of emphysema within both lungs, mainly within the upper lungs.
Mild diffuse increased interstitial markings, which could represent interstitial pneumonitis and/or interstitial edema.
Endotracheal tube with tip 3.2 cm above the swati.
Nasogastric tube with tip in the mid to distal esophagus. This tube should be repositioned.
No evidence for bowel obstruction. No evidence for free intraperitoneal air.
CXR 05/26/2024:
Interval development of mild opacity at the left lung base, atelectasis versus pneumonia. No significant change in generalized prominence of bronchovascular markings. A nasogastric tube extends into the stomach.
CXR 05/27/2024:
Endotracheal tube is present with tip in good position mid trachea. Nasogastric tube, tip extending off the inferolateral the radiograph.
Parenchymal opacity within the left lower lung, appears slightly increased from most recent radiograph. This most likely represents pneumonia, although there could also be a component of atelectasis.
Increased interstitial markings within the right lower lung and the left midlung, suspicious for interstitial component of pneumonitis and/or bronchitis/bronchiolitis.
CXR 05/28/2024: Improved left basilar opacity likely representing resolving subsegmental atelectasis and/or pneumonia.
Subjective Data
-
Date of Service:
Date of Service: May 30, 2024
Chief Complaint: Pulmonary Follow Up (Hypoxemic/hypercapnic respiratory failure-bilateral pneumonia)
Subjective:
Feels better
Less cough
Less sputum production
Denies hemoptysis
Ambulated to the restroom without significant shortness of breath
Remains on low rate supplemental oxygen
Review of Systems
Cardiopulmonary: Dyspnea, Cough, Sputum Production and Wheezing (Improved)
GI: Abdominal Pain (n) and Nausea (n)
Objective Data
Data Reviewed
Vital Signs / I&O / Oxygen:
Vital Signs
Temp Pulse Resp BP Pulse Ox
97.7 F 58 16 144/90 94
05/30/24 08:52 05/30/24 11:47 05/30/24 11:47 05/30/24 08:02 05/30/24 11:47
Intake and Output
05/29/24 05/30/24 05/31/24
06:59 06:59 06:59
Intake Total 2210.5 / 2210.5 340 / 340
Output Total 1260 / 1285 1300 / 1300 300 / 300
Balance 950.5 / 925.5 -960 / -960 -300 / -300
SaO2 [A/C] 90
SaO2 94
Nasal Cannula flow liters per 3
minute
Physical Exam
General: Comfortable
HEENT: Normocephalic
Cardiovascular: S1-S2 and Regular Rhythm
Respiratory: Wheeze (Minimal) and Other (Good air movement)
GI: Soft and Distended (Obese)
Neurology: Awake, Alert, Oriented and No Motor Deficits
Skin: Warm
Labs/Micro/Reports
Microbiology
05/26/24 13:29 Blood/Venous Blood Culture - Preliminary
No Growth in 72 hours- Final report to follow
05/24/24 21:46 Endotracheal Respiratory Culture - Final
Usual Respiratory Nasreen
05/24/24 21:46 Endotracheal Gram Stain - Final
05/24/24 14:42 Blood/Venous Blood Culture - Final
Staphylococcus simulans
05/24/24 14:42 Blood/Venous Gram Stain - Final
05/24/24 14:42 Blood/Venous Blood Culture - Preliminary
Staphylococcus simulans
05/24/24 14:42 Blood/Venous Gram Stain - Preliminary
--- NOTE | 2024-05-30 12:50 | PTCARENOTE ---
Dr. Faustin notified of elevated BP trend. PRN Hydralazine ordered.
[2024-05-30 13:03] LABS: Glucose - Point of Care 143 mg/dl (70-99)
--- NOTE | 2024-05-30 13:14 | CM ---
CM following re: discharge planning.
Reviewed pt's chart, met with pt.
PT and OT evaluations noted - acute rehab level of care recommended. Pt expressed his desire to return back home if able and in meantime in case rehab is required he preferred [facility] here at or [facility] acute rehab in [place].
PMNR consult requested.
A referral to [facility] acute rehab and [facility] rehab in [place] made.
CM spoke to [facility] acute product responsibility liaison Samantha [phone] and she stated that pt seems doing better and an updated PT/OT notes requested. Per Samantha, if pt qualifies for an acute rehab by tomorrow they will offer a bed.
D/C plan: pt feels he can return back home with family. PT and OT will re-evaluate. [facility] will offer a bed if pt qualifies for an acute rehab level of care after re-evaluation by PT and OT and PM&R recommendation.
CM will follow with discharge plan updates as hospitalization progresses.
--- NOTE | 2024-05-30 15:06 | W.PN.HOSP.TC ---
Today's Communication/Plan
-
cont Abx
ID consult
wean off O2
Nifedipine
Assessment / Plan
Assessment / Plan
58yo M with COPD, HTN, hypothyroidism came minimally responsive found in his truck, was intubated, managed for pneumonia and hypercarbia 2/2 COPD with septic shock, rapidly improved, extrubated and being weaned off O2.
A/P:
#Acute hypoxic hypercapnic respiratory failure 2/2 COPD exacerbation cannot r/o carbon monoxide poisoning
#mild acute diastolic CHF exacerbation
#Acute LLL pneumonia with bacteremia and septic shock
extubated on 05/28
Unasyn/Azithromycin
Pulm follows
Taper down steroids
bronchodilators
completed diuresis
Bcx with Staph.simulans, repeated neg, will get ID consult
Echo without significant valvular changes
#MAGGI
2/2 shock
resolved
ACEi stopped
#Essential HTN
start nifedipine
#Hypernatremia
improving
follow sodium
#Hypothyroidism
TSH elevated now improving
Patient declined non-compliance
TSH improving - repeat ion 2-3 weeks with PCP - patient verbalized understanding
#Nicotine dependency
counseled on smoking cessation
DVT ppx lovenox
FUll code
I have spent at least 38min reviewing chart, test results, communication with consultants and direct patient care
Anticipated Discharge: 24 - 48 hours
Subjective/Interval History
-
Date of Service: May 30, 2024
Objective Data
-
Vital Signs:
Vital Signs
Temp Pulse Resp BP Pulse Ox
98.4 F 75 16 148/84 94
05/30/24 14:43 05/30/24 12:47 05/30/24 11:47 05/30/24 12:47 05/30/24 11:47
I&O
12/02/1205/30/24 05/31/24
06:59 06:59 06:59
Intake Total 2210.5 / 2210.5 340 / 340 480 / 480
Output Total 1260 / 1285 1300 / 1300 300 / 300
Balance 950.5 / 925.5 -960 / -960 180 / 180
Review of Systems
-
History Source: Patient
All other systems: Reviewed and negative
Physical Exam
-
General: No Apparent Distress
HEENT: Moist Mucous Membranes and Other (R 'lazy eye')
Respiratory: Rales
Cardiac: Regular Rhythm
GI: Soft, Nontender and Nondistended
Skin: Warm
Neuro: Awake, Alert, Oriented and AO x 3
Psych: Calm
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
[2024-05-30 15:41] LABS: Hematocrit 49.7 % (39.0-52.0); Hemoglobin 14.8 g/dL (13.0-18.0); Mean Corp Hgb Conc. 29.8 g/dL (33.0-37.0); Mean Corpuscular Hgb 27.3 pg (27.0-31.0); Mean Corpuscular Volume 91.5 fL (80.0-94.0); Mean Platelet Volume 10.8 fL (7.4-10.4); Platelet Count 211 10^3/uL (130-400); Red Blood Cell Count 5.43 10^6/uL (4.70-6.10); Red Cell Dist. Width 15.9 % (11.5-14.5); White Blood Cell Count 11.2 10^3/uL (4.8-10.8)
[2024-05-30 16:12] LABS: ALT (SGPT) 117 U/L (0-50); AST (SGOT) 65 U/L (17-59); Albumin 3.9 g/dl (3.5-5.0); Alkaline Phosphatase 75 U/L (38-126); Blood Urea Nitrogen 28 mg/dl (9-20); Calcium 9.2 mg/dl (8.4-10.2); Carbon Dioxide 33 mmol/L (22-30); Chloride 100 mmol/L (98-107); Estimated Creatinine Clearance > 125 ml/min; Glucose 216 mg/dl (70-99); Magnesium 2.7 mg/dl (1.6-2.3); Potassium 4.8 mmol/L (3.5-5.1); Sodium 143 mmol/L (135-145); Total Bilirubin 1.2 mg/dl (0.2-1.3); Total Protein 6.6 g/dl (6.3-8.2); eGFR > 60.00
[2024-05-30 16:34] LABS: TSH Reflex To Free T4 9.98 uIU/ml (0.47-4.68)
--- NOTE | 2024-05-30 17:04 | PTCARENOTE ---
Pt had an episode of incontinence small brown liquid stool -was unaware. Emotional support provided, explained to pt that he is on stool softeners and this is a common occurance. Hygeine care provided.
Pt's labwork outstanding from this am was obtained by phelbotomist after several attempts, VBG hemolyzed-Dr. Faustin notified, he stated no need to redraw.
Pt assisted back into bed after sitting up in chair since 0800. Weaned to room air, sat 93%. Safe environment maintained.
[2024-05-30] MEDS: NOVOLOG FLEXPEN-MODERATE RESISTANCE 3 UNITS SC (17:13)
[2024-05-30] MEDS: LOVENOX 40 MG SC (17:14)
[2024-05-30] MEDS: PROCARDIA XL (EXTENDED RELEASE) 30 MG PO (17:14)
[2024-05-30 17:24] LABS: Glucose - Point of Care 211 mg/dl (70-99)
[2024-05-30 17:50] LABS: Free T4 0.98 ng/dl (0.78-2.19)
--- NOTE | 2024-05-30 21:00 | PTCARENOTE ---
Received patient at 1900. Pt. currently in bed. Awake, alert, and oriented. Denies pain/discomfort. Afebrile. Heart rhythm sinus. Blood pressure normotensive. Currently on room air. Lungs sound diminished. PO diet, good appetite. Voiding in urinal.
Skin as documented. Discussed plan of care with patient. Vital signs stable at this time.
--- NOTE | 2024-05-30 21:30 | PTCARENOTE ---
Pt. dislodged L arm IV while getting up to go to the bathroom. Pt. Attempt made to place new infusor, but unable. IV team called. IV team placed R arm 20g IV.
[2024-05-31] VITALS (7 sets, daily range): BP systolic 110–154; BP diastolic 71–97; PULSE 85; O2SAT 94; BMI 41.5
[2024-05-31] MEDS: UNASYN IV ×3 (00:13→12:45)
--- NOTE | 2024-05-31 01:30 | PTCARENOTE ---
Pt. with complaints of IV site that was placed a few hours ago by IV team. Upon assessment IV site red and leaking. IV removed. Multiple attempts made by myself and 2 other ICU RNs to place new infusor. Unable to regain IV access. IV team not
available at this time. Pt. not due for IV medication until 6am. Will notify IV team when they are available.
[2024-05-31] MEDS: SYNTHROID 200 MCG PO (05:35)
[2024-05-31] MEDS: PULMICORT 0.5 MG INH (07:25)
[2024-05-31] MEDS: DUONEB 3 ML INH ×2 (07:25→11:17)
[2024-05-31] MEDS: DESENEX/MITRAZOL/ZEASORB 1 APPLIC TOPICAL (08:18)
[2024-05-31] MEDS: NICODERM TRANSDERMAL 21 MG TRANSDERM (08:19)
[2024-05-31] MEDS: DELTASONE 40 MG PO (08:19)
[2024-05-31] MEDS: NOVOLOG FLEXPEN-MODERATE RESISTANCE SC (08:19)
[2024-05-31] MEDS: MIRALAX PO (08:19)
[2024-05-31] MEDS: ROBITUSSIN 200 MG PO ×2 (08:20→12:44)
[2024-05-31] MEDS: ZITHROMAX 250 MG PO (08:20)
[2024-05-31] MEDS: PROCARDIA XL (EXTENDED RELEASE) 30 MG PO (08:20)
[2024-05-31] MEDS: TYLENOL 650 MG PO (08:21)
[2024-05-31 08:28] LABS: Glucose - Point of Care 120 mg/dl (70-99)
--- NOTE | 2024-05-31 10:39 | W.PN.PUL3 ---
Today's Communication / Plan
-
Transition to oral antibiotics and complete 7 days per infectious disease
Transition back to inhalers upon discharge
Prednisone taper
Advised to avoid sedative or alcohol use
Will need to address chronic hypercapnic respiratory failure in the outpatient setting
Oxygen supplementation at discharge-hopefully temporary.
Discharge plan
Sign off
Assessment
-
58-year-old male with a past medical history of tobacco use disorder, hypertension, hypothyroidism and reported history of asthma who presents with altered mental status. Found to be hypoxic and intubated in the field. Brought to the ER where he
was found to have a pneumonia with upper lobe predominant emphysema. 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
Impression:
#Acute respiratory failure with hypoxia and hypercapnia requiring mechanical ventilation (intubated 05/24 in the field --> extubated 05/28)
#CAP involving bilateral lower lobes
#Septic shock due to above - shock state now resolved since 05/26
#Hypothermia likely due to septic shock from LLL pneumonia - hypothermia now resolved
#Centrilobular emphysema with concern for COPD with acute exacerbation
#MAGGI (unknown Cr baseline) with elevated potassium - resolved
#Lactic acidosis - resolved
#Elevated troponin - peaked at 0.394 on 05/25/2024
#Acute decompensated heart failure (mild)
#Right ventricular systolic dysfunction (seen on TTE from 05/25/2024)
#Hypothyroidism with severely elevated TSH of 60.4 with free T4 0.49
#Hyperglycemia - improved
#Transaminitis
Plan:
- Patient was extubated on 05/28/2024, and has been doing well since that time.
-With mild oxygen desaturation with ambulation. Will need supplemental oxygen at discharge. Hopefully will be temporary.
-
Bronchospasm improved.
While in the hospital continue nebulized therapy-DuoNeb.
- DuoNebs QID - AECOPD
-Transitioned to prednisone 40 mg today 05/30/2024. Decrease by 10 mg every 72 hours to off.
- Maintain euglycemia while on high-dose steroids with goal BG 140�180; use ISS
- Continue mucinex
-Advance diet as tolerated. Aspiration precautions.
- Continue BiPAP with sleep given his chronic hypercapnic respiratory failure in the setting of COPD/hypercapnic obesity hypoventilation syndrome; use nasal PAP mask given his secretions-will need outpatient pulmonary follow-up to address this in
the outpatient setting. Continue current pressure of 12/5 cm of water
- Continue Abx
��������������� - Blood cultures from 05/24 are growing Staphylococcus simulans which is sensitive to oxacillin - on 05/27 Dr. Leonard narrowed ABx from Zosyn to Unasyn and given that he was septic and in shock, would give 14 days of ABx from date of
first negative blood Cx, may transition to Augmentin upon discharge.
- s/p IV vanco --> now stopped
Infectious disease consulted: Only 7 days of antibiotics noted. Blood cultures likely contaminant.
Okay to transition to Augmentin
Complete 7 days of azithromycin
-
Radiographic follow-up will be needed in the outpatient setting. Patient aware.
-Hemodynamically stable not requiring vasopressors.
- proBNP was 130 on 05/27
��������������� - 2D-echo done on 05/25/2024 showed preserved LVEF at 60-85% with moderate concentric LVH, and mildly enlarged RV with mildly reduced RV systolic function
�
- DVT ppx: LMWH
Pulmonary will continue to follow. Okay with discharge planning from the pulmonary perspective.
Information left in the chart to follow-up in our office
Instructed to call back our office or primary care if symptoms worsen.

Data:
Transthoracic echocardiogram 05/25/2024:
Normal left ventricular systolic function. LV ejection fraction is 60-65%.
Moderate concentric left ventricular hypertrophy.
Mildly enlarged right ventricular size. Mildly reduced right ventricular
systolic function.
No significant valve disease.
CTA chest/CT abdomen/pelvis with contrast 05/24/2024:
Examination is negative for pulmonary embolism.
Parenchymal airspace opacity within both lower lobes, left greater than right, with findings suspicious for pneumonia. Atelectasis could have a similar appearance.
Changes of emphysema within both lungs, mainly within the upper lungs.
Mild diffuse increased interstitial markings, which could represent interstitial pneumonitis and/or interstitial edema.
Endotracheal tube with tip 3.2 cm above the swati.
Nasogastric tube with tip in the mid to distal esophagus. This tube should be repositioned.
No evidence for bowel obstruction. No evidence for free intraperitoneal air.
CXR 05/26/2024:
Interval development of mild opacity at the left lung base, atelectasis versus pneumonia. No significant change in generalized prominence of bronchovascular markings. A nasogastric tube extends into the stomach.
CXR 05/27/2024:
Endotracheal tube is present with tip in good position mid trachea. Nasogastric tube, tip extending off the inferolateral the radiograph.
Parenchymal opacity within the left lower lung, appears slightly increased from most recent radiograph. This most likely represents pneumonia, although there could also be a component of atelectasis.
Increased interstitial markings within the right lower lung and the left midlung, suspicious for interstitial component of pneumonitis and/or bronchitis/bronchiolitis.
CXR 05/28/2024: Improved left basilar opacity likely representing resolving subsegmental atelectasis and/or pneumonia.
Subjective Data
-
Date of Service:
Date of Service: May 31, 2024
Chief Complaint: Pulmonary Follow Up (Hypoxemic/hypercapnic respiratory failure-bilateral pneumonia)
Subjective:
No new complaints
Denies hemoptysis or worsening phlegm production
Exertional dyspnea improving
Was not able to use BiPAP consistently overnight.
Review of Systems
General: Fever (n)
Cardiopulmonary: Dyspnea (improved)
GI: Abdominal Pain (n) and Nausea (n)
Neuro: Headache (n)
Objective Data
Data Reviewed
Vital Signs / I&O / Oxygen:
Vital Signs
Temp Pulse Resp BP Pulse Ox
97.9 F 72 24 151/78 86
05/31/24 07:40 05/31/24 08:12 05/31/24 08:12 05/31/24 08:12 05/31/24 08:12
Intake and Output
05/30/24 05/31/24 06/01/24
06:59 06:59 06:59
Intake Total 340 / 340 1200 / 1200
Output Total 1300 / 1300 1400 / 1400
Balance -960 / -960 -200 / -200
SaO2 [A/C] 90
SaO2 86
Nasal Cannula flow liters per 3
minute
Physical Exam
General: Comfortable
HEENT: Normocephalic
Cardiovascular: S1-S2 and Regular Rhythm
Respiratory: Wheeze (mostly resolved) and Other (Good air movement)
GI: Soft and Distended (Obese)
Neurology: Awake, Alert, Oriented and No Motor Deficits
Skin: Warm
Labs/Micro/Reports
Lab Data
05/31/24 06:00
05/31/24 06:00
Microbiology
05/26/24 13:29 Blood/Venous Blood Culture - Preliminary
No Growth in 4 days- Final report to follow
05/24/24 21:46 Endotracheal Respiratory Culture - Final
Usual Respiratory Tessy
05/24/24 21:46 Endotracheal Gram Stain - Final
05/24/24 14:42 Blood/Venous Blood Culture - Final
Staphylococcus simulans
05/24/24 14:42 Blood/Venous Gram Stain - Final
[2024-05-31] MEDS: NOVOLOG FLEXPEN-MODERATE RESISTANCE 1 UNITS SC (11:57)
[2024-05-31 12:03] LABS: Glucose - Point of Care 183 mg/dl (70-99)
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
--- NOTE | 2024-05-31 14:25 | CM ---
CM following re: discharge planning.
Reviewed pt's chart, has been meeting with the [t and his spouse many tomes to discuss discharge plan.
Updated PT and OT evaluations noted - pt has been improved significantly and outpatient PT/OT recommended.
Pt will need a script for outpatient PT/OT.
Per RT and MD pt requires home Oxygen. CM placed an order for home Oxygent with [id number], two portable oxygen tanks delivered to pt's room to take home and a concentrator will be delivered to pt's home when pt is home. Pt is instructed to call
[employer] when he leaves the hospital and oxygen concentrator will be delivered to pt's home. Pt stated he has 4 children and 2 children live with him. Pt's spouse stated she will transport pt home.
D/C plan: home with outpatient PT/OT, home Oxygen and family support. Spouse to transport.
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
--- NOTE | 2024-05-31 14:48 | W.DCSUMMARY ---
Discharge Summary
Discharge Data
Date of Admission: 05/24/24
Date of Discharge: 05/31/24
-
Pending Results: No
Hospital Course
58yo M with COPD, HTN, hypothyroidism came minimally responsive found in his truck, was intubated, managed for pneumonia and hypercarbia 2/2 COPD with septic shock, rapidly improved, extubated and being weaned off O2. BCx contaminated with Staph as
drawn same time, repeated are neg as agreed by ID - no need to treat. Complete 10 days Unasyn upon d/c
I have spent at least 38min reviewing chart, test results, communication with consultants and direct patient care
Patient was managed for:
#Acute hypoxic hypercapnic respiratory failure 2/2 COPD exacerbation cannot r/o carbon monoxide poisoning
#mild acute diastolic CHF exacerbation
#Acute LLL pneumonia with septic shock
#MAGGI
#Essential HTN
#Hypernatremia
#Hypothyroidism
#Nicotine dependency
Discharge Plan
-
Patient Disposition: Home with Home Care
Discharge Diagnosis/Procedures: Pneumonia
Diet: Diabetic, Carb Controlled
Referrals:
Alexey Leonard MD [Active] - in three to four weeks (full PFTs on day of office visit)
Jessica Reddy CRNP [Family Provider] - in two to three weeks (repeat TSH)
Prescriptions:
New
amoxicillin-pot clavulanate 875-125 mg Tablet
1 tab PO Q12 Qty: 6 0RF
azithromycin 250 mg Tablet
250 mg PO DAILY Qty: 3 0RF
nifedipine 30 mg Tablet Extended Release
30 mg PO DAILY Qty: 30 0RF
albuterol sulfate 90 mcg/actuation HFA aerosol inhaler
2 puff inhalation Q6H PRN (Reason: shortness of breath or wheezing) Qty: 8.5 0RF
metformin 500 mg tablet
500 mg PO BID Qty: 60 0RF
prednisone 10 mg Tablet
See Rx Instructions .ROUTE .COMPLEX Qty: 30 0RF
Rx Instructions:
Take By Mouth:
40 mg daily x3 days, 30 mg daily x3 days,
20 mg daily x3 days, 10 mg daily x3 days.
Continued
atorvastatin [Lipitor] 20 mg Tablet
20 mg PO HS
levothyroxine [Synthroid] 200 mcg Tablet
200 mcg PO DAILY
Trelegy Ellipta 100-62.5-25 mcg Blister With Device
1 inh INHALATION R DAILY
Discontinued
lisinopril 20 mg Tablet
20 mg PO DAILY
Discharge Orders:
Discharge Patient (As Directed); Ordered 05/31/24
Ordered By: Abelino Faustin
Discharge Date and Time
Print Language: CHINESE
[2024-05-31] MEDS: DUONEB INH (15:07)
--- NOTE | 2024-05-31 16:13 | PTCARENOTE ---
pt sent with discharge instructions, oxygen tanks and scripts for outpt therapy. Pt is aware he need to start augmentin this evening and to begin steroid taper over the next 12 days. prior to leaving hospital pt was notified that scripts were
ready at pharmacy. no questions at time of discharge
== END 2024-05-31 16:14 | disposition home or self-care (01) | DRG 208 ==
LOC: ICU 16:29
PROVIDERS: General Practice; Nurse Practitioner Family; ADMITTING PHYSICIAN Hospitalist; ATTENDING PHYSICIAN Internal Medicine; CONSULT PHYSICIAN Internal Medicine Infectious Disease; EMERGENCY PHYSICIAN Emergency Medicine; FAMILY PHYSICIAN Nurse Practitioner Family; OTHER PHYSICIAN Internal Medicine Critical Care Medicine
PROC: 5A1945Z Respiratory Ventilation, 24-96 Consecutive Hours (ICD-10-PCS; 2024-05-24)
PROC: 5A09357 Assistance with Respiratory Ventilation, Less than 24 Consecutive Hours, Continuous Positive Airway Pressure (ICD-10-PCS; 2024-05-26)
DX: J96.01 Acute respiratory failure with hypoxia (principal); A41.1 Sepsis due to other specified staphylococcus; E03.5 Myxedema coma; I50.33 Acute on chronic diastolic (congestive) heart failure; J18.9 Pneumonia, unspecified organism; R65.21 Severe sepsis with septic shock; I5A Non-ischemic myocardial injury (non-traumatic); J44.0 Chronic obstructive pulmonary disease with (acute) lower respiratory infection; J44.1 Chronic obstructive pulmonary disease with (acute) exacerbation; N17.9 Acute kidney failure, unspecified; J45.901 Unspecified asthma with (acute) exacerbation; E87.0 Hyperosmolality and hypernatremia; E87.20 Acidosis, unspecified; Z68.41 Body mass index [BMI] 40.0-44.9, adult; J96.02 Acute respiratory failure with hypercapnia; T58.01XA Toxic effect of carbon monoxide from motor vehicle exhaust, accidental (unintentional), initial encounter; F17.210 Nicotine dependence, cigarettes, uncomplicated; I11.0 Hypertensive heart disease with heart failure; E03.9 Hypothyroidism, unspecified; T68.XXXA Hypothermia, initial encounter; J43.2 Centrilobular emphysema; E66.89 Other obesity not elsewhere classified; E87.5 Hyperkalemia; Y92.481 Parking lot as the place of occurrence of the external cause; Z11.52 Encounter for screening for COVID-19; Z79.890 Hormone replacement therapy; Z79.899 Other long term (current) drug therapy
CPT/HCPCS: 36600; 70450; 71045; 71275; 74018; 74177; 80048; 80053; 80143; 80179; 80202; 81003; 81015; 82077; 82375; 82805; 82962; 83036; 83605; 83735; 83880; 84100; 84145; 84439; 84443; 84478; 84484; 85025; 85027; 85610; 85730; 87040; 87070; 87086; 87147; 87150; 87186; 87205; 87449; 87502; 87811; 87899; 92526; 92610; 93005; 93306; 94002; 94003; 94640; 94660; 96365; 96366; 96367; 96375; 97116; 97163; 97167; 97530; 99291; Q9967

== ENCOUNTER → 2024-07-22 10:44 | Outpatient (REF) | payer OTHER, SELFPAY | LOC: REG 10:44 | PROVIDERS: ATTENDING PHYSICIAN Nurse Practitioner Adult Health | DX: J18.9 Pneumonia, unspecified organism (principal) | CPT/HCPCS: 71046 ==

== ENCOUNTER → 2024-08-25 13:15 | Outpatient (REF) | payer OTHER, SELFPAY | LOC: DHSLP 13:15 | PROVIDERS: ATTENDING PHYSICIAN Internal Medicine | DX: G47.33 Obstructive sleep apnea (adult) (pediatric) (principal); R09.02 Hypoxemia; G47.61 Periodic limb movement disorder; G47.52 REM sleep behavior disorder | CPT/HCPCS: 95810 ==